=== PATIENT | male | born 1955 | race Caucasian/White ===

== ENCOUNTER → 2016-04-29 | Outpatient (CLI) | payer OTHER ==
[~2016-04-29] MED LIST: ASPI-232 PO; B-CO1CAP17 PO; CHOL1000 PO; COEN100C11 PO; DOXY100C76 PO; FLNIN/ NAE; FLUO20CA35 PO; HYDR-3419 PO; HYDR12.56 PO; LOPE1CAP6 PO; LORA0.5T12 PO; MAGNESIUM PO; MECL1TAB42 PO; MELO7.5T7 PO; METO50TA16 PO; OMEG500C2 PO; OMEP20TA14 PO; OXYC-57 PO; QUIN20TA30 PO; THIA1TAB11 PO; TRAM-10 PO; WARF2TAB PO
[2016-05-06 08:10] LABS: ANAPLASMA PHAGOCYTOPHIL IGG <1:64 (<1:64); ANAPLASMA PHAGOCYTOPHIL IGM <1:20 (<1:20); BRUCELLA AB IGG 0.26; BRUCELLA AB IGM 0.05; R. TYPHI IgG AB Not Detected (Not Detected); R. TYPHI IgM AB Not Detected (Not Detected); RMSF IgM AB Not Detected (Not Detected)
== END | disposition home or self-care (01) ==
LOC: C.LAB1850 15:48
PROVIDERS: ATTEND Internal Medicine Infectious Disease
DX: M79.1 Myalgia (principal)

== ENCOUNTER → 2016-05-31 | Outpatient (CLI) | payer OTHER ==
[2016-06-04 23:19] LABS: R. TYPHI IgG AB Not Detected (Not Detected); R. TYPHI IgM AB Not Detected (Not Detected); RMSF IgM AB Not Detected (Not Detected)
[2016-06-06 00:57] LABS: 18KDIGG BAND REACTIVE (NONREACTIVE); 23KDIGG BAND REACTIVE (NONREACTIVE); 23KDIGM BAND REACTIVE (NONREACTIVE); 28KDIGG BAND NONREACTIVE (NONREACTIVE); 30KDIGG BAND NONREACTIVE (NONREACTIVE); 39KDIGG BAND REACTIVE (NONREACTIVE); 39KDIGM BAND REACTIVE (NONREACTIVE); 41KDIGG BAND REACTIVE (NONREACTIVE); 41KDIGM BAND REACTIVE (NONREACTIVE); 45KDIGG BAND REACTIVE (NONREACTIVE); 58KDIGG BAND REACTIVE (NONREACTIVE); 66KDIGG BAND REACTIVE (NONREACTIVE); 93KDIGG BAND NONREACTIVE (NONREACTIVE)
== END | disposition home or self-care (01) ==
LOC: C.LAB1850 16:00
PROVIDERS: ATTEND Internal Medicine Infectious Disease
DX: G57.32 Lesion of lateral popliteal nerve, left lower limb (principal); A69.20 Lyme disease, unspecified

== ENCOUNTER → 2016-08-01 | Outpatient (CLI) | payer OTHER ==
--- NOTE | 2016-08-01 15:06 | DIAGNOSTIC IMAGING REPORT ---
SCOLIOSIS 2 VIEW (AP LAT) CLINICAL HISTORY: Back pain. COMPARISON STUDY: Lumbar spine MRI 03/27/2016. FINDINGS: Alignment is intact. Vertebral body heights are maintained. There is mild degenerative disc disease within the thoracic and lumbar spine. Mild levoscoliosis of the lumbar spine. This demonstrates a Crowe angle of 10 degrees measured from the superior endplate of L1 through the superior endplate of L4. No significant scoliosis of the cervical or thoracic spine. IMPRESSION: 1. Mild levoscoliosis within the lumbar spine. 2. Mild degenerative disc disease within the thoracic and lumbar spine. Electronically signed by: Blayne Álvarez M.D. 08/01/2016 3:04 PM Dictated Date/Time: 08/01/2016 3:00 PM
--- NOTE | 2016-08-01 15:22 | DIAGNOSTIC IMAGING REPORT ---
LUMBAR SPINE RADIOGRAPHS INCLUDING FLEXION AND EXTENSION CLINICAL HISTORY: Back pain. Left leg drop. COMPARISON: Lumbar spine MRI January 04, 2013. FINDINGS: No acute fracture is identified. There is no evidence for instability on flexion or extension. Moderate to severe multilevel degenerative disc disease and facet arthrosis is noted within the lumbar spine. IMPRESSION: 1. No acute lumbar spine fracture or subluxation identified. 2. No evidence of instability during flexion or extension. 3. Moderate to severe multilevel degenerative disc disease and facet arthrosis within the lumbar spine. Electronically signed by: Red Hui M.D. 08/01/2016 3:19 PM Dictated Date/Time: 08/01/2016 3:17 PM
== END | disposition home or self-care (01) ==
LOC: C.RAD 14:24
PROVIDERS: ATTEND Neurological Surgery
DX: M48.06 Spinal stenosis, lumbar region (principal)

== ENCOUNTER → 2016-11-04 | Outpatient (CLI) | payer OTHER ==
--- NOTE | 2016-11-04 11:41 | DIAGNOSTIC IMAGING REPORT ---
LEFT PELVIS/UNILATERAL HIP 2-3VIEWS CLINICAL HISTORY: 60 years-old Male presenting with LT HIP PAIN. TECHNIQUE: Frontal view of the pelvis and frontal and frog-leg lateral views of the left hip were obtained. COMPARISON: 01/29/2016. FINDINGS: No acute fracture. Significant interval worsening of degenerative change of the left hip joint. There is collapse of the left femoral head with depression of the superior articular surface and subcapital radiolucency of the humeral head which may relate to fragmentation, osteopenia, or reactive degenerative changes. Subchondral sclerosis both in the acetabulum and the humeral head. Significant joint space loss superiorly. Degenerative changes of the right hip joint with osteophytosis. No significant joint space loss. Sacroiliac joints intact. Chondrocalcinosis noted at the pubic symphysis. Degenerative changes of the lumbar spine. Atherosclerosis. IMPRESSION: 1. Significant interval progression of now severe degenerative changes of the left hip joint with collapse of the superior left femoral head, joint space loss, and sclerosis. 2. Less severe degenerative changes of the right hip joint. Electronically signed by: Dez Wyatt 11/04/2016 11:40 AM Dictated Date/Time: 11/04/2016 11:35 AM
== END | disposition home or self-care (01) ==
LOC: C.RADPV 10:13
PROVIDERS: ATTEND Nurse Practitioner
DX: M25.552 Pain in left hip (principal)

== ENCOUNTER → 2016-12-03 | Outpatient (CLI) | payer OTHER ==
--- NOTE | 2016-12-03 13:07 | DIAGNOSTIC IMAGING REPORT ---
RIGHT PELVIS UNILATERAL HIP 1 VIEW CLINICAL HISTORY: RIGHT HIP PAIN Right COMPARISON STUDY: Pelvis 11/04/2016. FINDINGS: Sclerosis with a band of lucency within the left femoral head. There is significant left femoral head collapse. This is consistent with avascular necrosis. There are superimposed severe osteoarthritis within the left hip. There is also sclerosis and a linear subchondral lucency within the right femoral head consistent with a tiny subchondral fracture in the setting of avascular necrosis. This demonstrates minimal femoral head collapse at this time. Bilateral chondrocalcinosis. The visualized pelvic bones are intact. No dislocation. Mild vascular calcifications. IMPRESSION: Bilateral femoral head avascular necrosis, left greater than right, with significant left femoral head collapse/deformity. There is minimal right femoral head collapse at this time. Electronically signed by: Blayne Álvarez M.D. 12/03/2016 1:06 PM Dictated Date/Time: 12/03/2016 1:02 PM
== END | disposition home or self-care (01) ==
LOC: C.RDSM 11:52
PROVIDERS: ATTEND Physician Assistant
DX: M79.641 Pain in right hand (principal)

== ENCOUNTER → 2016-12-17 | Outpatient (CLI) | payer OTHER ==
[~2016-12-17] MED LIST changes: -DOXY100C76 PO; +GADAVIST IV PRN; -TRAM-10 PO
--- NOTE | 2016-12-17 17:16 | DIAGNOSTIC IMAGING REPORT ---
Brain MRI WITH AND WITHOUT CONTRAST HISTORY: R42 [id number] Generalized [id number] TECHNIQUE: Multiplanar multisequence MRI of the brain was performed both before and after the intravenous administration of contrast. COMPARISON STUDY: None. FINDINGS: There are no areas of restricted diffusion to suggest acute infarction. The midline structures are intact. There are 2 small retention cysts within the left maxillary sinus.. The mastoid air cells are clear. The ventricles and sulci are within normal limits for age. There is no mass, hematoma, midline shift. The major vascular flow-voids at the skull base are well maintained. Postcontrast sequences show no areas of abnormal enhancement. There is a single punctate focus of T2 hyperintensity within the subcortical white matter the right posterior frontal lobe. This is of doubtful current significance given the patient's age and favors minimal microvascular ischemic change. IMPRESSION: No significant abnormality within the brain. Electronically signed by: Blayne Álvarez M.D. 12/17/2016 5:15 PM Dictated Date/Time: 12/17/2016 5:09 PM
--- NOTE | 2016-12-17 17:48 | DIAGNOSTIC IMAGING REPORT ---
CERVICAL SPINE MRI WITH AND WITHOUT CONTRAST HISTORY: R42 [id number] Generalized [id number] TECHNIQUE: Multiplanar multisequence MRI of the cervical spine was performed both before and after the use of intravenous contrast. COMPARISON STUDY: Cervical spine 12/13/2016. FINDINGS: Straightening of the cervical spine. Alignment is intact. The visualized posterior fossa is unremarkable. Prevertebral soft tissues and the C1-C2 interval are maintained. Mild endplate edema at the C7-T1 level is likely due to the long-standing degenerative change. Hypoplastic C2-C3 disc space. Mild disc space narrowing at C5-C6 and C6-C7. Moderate disc space narrowing at C7-T1. There are endplate osteophytes at these levels. No abnormal enhancement within the cervical spinal cord. C2-C3: No significant central canal or neural foraminal narrowing. C3-C4: No significant central canal or neural foraminal narrowing. C4-C5: No significant central canal or neural foraminal narrowing. C5-C6: Small broad-based posterior disc bulge resulting in near-complete effacement of the anterior thecal sac without cord deformity. Mild bilateral neural foraminal narrowing due to the uncovertebral hypertrophy. C6-C7: Small broad-based posterior disc bulge resulting in near-complete effacement of the anterior thecal sac without cord deformity. There is moderate bilateral neural foraminal narrowing. C7-T1: Broad-based posterior disc bulge with a focal central disc protrusion. This disc protrusion measures 5 mm. This results in moderate cord deformity. There is a small focus of increased T2 signal at the cord at this level. This favors myelomalacia due to the disc herniation. Severe left and moderate right neural foraminal narrowing. IMPRESSION: 1. No abnormal enhancement within the cervical spine. 2. Multilevel cervical spondylosis as described above most pronounced within the lower cervical spine. This includes a focal central disc protrusion at C7-T1 which results in moderate cord deformity/thinning. There is also a small focus of increased T2 signal within the cord at this level which is consistent with myelomalacia. This is likely due to the disc herniation. Electronically signed by: Blayne Álvarez M.D. 12/17/2016 5:47 PM Dictated Date/Time: 12/17/2016 5:38 PM
== END | disposition home or self-care (01) ==
LOC: C.MRI 14:48
PROVIDERS: ATTEND Physician Assistant
DX: R53.1 Weakness (principal); R20.2 Paresthesia of skin; R42 Dizziness and giddiness

== ENCOUNTER 2017-01-08 06:12 | Inpatient (IN) | payer OTHER ==
[2016-12-13 14:23] VITALS: BMI 28.0
[2016-12-13 14:38] VITALS: BMI 28.0
--- NOTE | 2016-12-13 14:58 | PAT Medication Instructions ---
Service Date Dec 13, 2016. Current Home Medication List Aspirin (Aspir-81), 81 MG PO QAM Cholecalciferol (Vitamin D3), 5,000 UNITS PO QAM Coenzyme Q10 (Ubidecarenone) (Coq-10), 100 MG PO QAM Fluoxetine (Prozac), 20 MG PO QAM Fluticasone Propionate (Fluticasone Propionate), 2 SPRAYS BRODIE DAILY PRN for Nasal Congestion Hydrochlorothiazide (Hctz), 12.5 MG PO QAM Hydrocodon/Acetaminophen 5MG/300MG (Vicodin (5MG/300MG)), 1 TAB PO Q4-6H PRN for Pain Loperamide Hcl (Anti-Diarrheal), 2 MG PO PRN Lorazepam (Lorazepam), 0.5 MG PO TID PRN Meclizine Hcl (Meclizine Hcl), 1 TAB PO TID PRN for RN Meloxicam (Mobic), 7.5 MG PO BID Metoprolol Tartrate (Lopressor) (Lopressor), 25 MG PO BID [place]-3 Fatty Acids (Fish Oil), 1,000 MG PO HS Omeprazole Magnesium (Prilosec Otc), 20 MG PO BID Quinapril Hcl (Quinapril Hcl), 40 MG PO QAM Thiamine Mononitrate (Vitamin B1), 100 MG PO QPM Vitamin B Cmplx/Vitc/Folic Ac (Nephrocaps), 1 CAP PO QAM [Magnesium], 500 MG PO QAM Medication Instructions For Your Scheduled Surgery - Check with surgeon for instructions: Meloxicam (Mobic), 7.5 MG PO BID - Hold the following medications 2 weeks prior to surgery: [place]-3 Fatty Acids (Fish Oil), 1,000 MG PO HS Coenzyme Q10 (Ubidecarenone) (Coq-10), 100 MG PO QAM - Hold the following medications the morning of surgery: Cholecalciferol (Vitamin D3), 5,000 UNITS PO QAM Hydrochlorothiazide (Hctz), 12.5 MG PO QAM Loperamide Hcl (Anti-Diarrheal), 2 MG PO PRN Quinapril Hcl (Quinapril Hcl), 40 MG PO QAM Vitamin B Cmplx/Vitc/Folic Ac (Nephrocaps), 1 CAP PO QAM [Magnesium], 500 MG PO QAM - Take the following medications the morning of surgery with a sip of water: Metoprolol Tartrate (Lopressor) (Lopressor), 25 MG PO BID Fluoxetine (Prozac), 20 MG PO QAM Hydrocodon/Acetaminophen 5MG/300MG (Vicodin (5MG/300MG)), 1 TAB PO Q4-6H PRN for Pain (can take up to 4 hours prior to surgery as needed) Omeprazole Magnesium (Prilosec Otc), 20 MG PO BID Lorazepam (Lorazepam), 0.5 MG PO TID PRN Meclizine Hcl (Meclizine Hcl), 1 TAB PO TID PRN for RN i(if needed) Fluticasone Propionate (Fluticasone Propionate), 2 SPRAYS BRODIE DAILY PRN for Nasal Congestion i(if needed) Aspirin (Aspir-81), 81 MG PO QAM - Take the following medications as scheduled the night before surgery: Thiamine Mononitrate (Vitamin B1), 100 MG PO QPM Omeprazole Magnesium (Prilosec Otc), 20 MG PO BID Lorazepam (Lorazepam), 0.5 MG PO TID PRN Meclizine Hcl (Meclizine Hcl), 1 TAB PO TID PRN for RN (if needed) Fluticasone Propionate (Fluticasone Propionate), 2 SPRAYS BRODIE DAILY PRN for Nasal Congestion i(if needed) Loperamide Hcl (Anti-Diarrheal), 2 MG PO PRNi(if needed) If you have any questions please call us at [phone] or [phone] or [phone]
[2016-12-13 15:29] LABS: BASO % 0.3 %; BASO ABS # 0.03 K/uL (0-0.2); COMPLETE YES; EOS % 2.9 %; HEMATOCRIT 46.7 % (42-52); IG% 0.1 %; LYMPH % 29.1 %; MEAN CELL VOLUME 84.8 fL (80-100); MEAN CORPUSCULAR HEMOGLOBIN 26.7 pg (25-34); MEAN CORPUSCULAR HGB CONC 31.5 g/dl (32-36); MEAN PLATELET VOLUME 10.2 fL (7.4-10.4); MONO % 12.4 %; NEUT % 55.2 %; PLATELET COUNT 252 K/uL (130-400); RED BLOOD COUNT 5.51 M/uL (4.7-6.1)
[2016-12-13 15:31] LABS: URINE APPEARANCE CLEAR (CLEAR); URINE BILIRUBIN NEG (NEG); URINE COLOR YELLOW; URINE NITRITE NEG (NEG); URINE PH 5.5 (4.5-7.5); URINE SPECIFIC GRAVITY 1.024 (1.000-1.030); UROBILINOGEN NEG (NEG)
[2016-12-13 15:36] LABS: MANUAL MICROSCOPIC REQUIRED? NO; REVIEW REQ? NO
[2016-12-13 15:37] LABS: INR 0.9 (0.9-1.1); PARTIAL THROMBOPLASTIN RATIO 1.1
--- NOTE | 2016-12-13 15:37 | DIAGNOSTIC IMAGING REPORT ---
CHEST 2 VIEWS ROUTINE HISTORY: Preop. COMPARISON: Chest 07/13/2012. FINDINGS: Tortuous thoracic aorta, unchanged. The heart is normal in size. The lungs are clear. No pleural effusions. No pneumothorax. IMPRESSION: No significant change compared to the prior study. No acute process. Electronically signed by: Blayne Álvarez M.D. 12/13/2016 3:36 PM Dictated Date/Time: 12/13/2016 3:35 PM
--- NOTE | 2016-12-13 15:39 | DIAGNOSTIC IMAGING REPORT ---
CERVICAL SPINE 2 OR 3 VIEWS CLINICAL HISTORY: 61 years-old Male presenting with PREOP, RHEUMATOID ARTHRITIS. TECHNIQUE: Lateral views of the cervical spine in neutral, flexion, and extension positioning were obtained. COMPARISON: None. FINDINGS: In neutral position, vertebral bodies maintain normal height and alignment. Mild intervertebral disc height loss at C2-3 and C6-7. Multilevel degenerative change including calcification within the intervertebral disc at C2-3. Normal predental interval. No radiographic subluxation. No prevertebral soft tissue swelling. No significant abnormality of the atlantoaxial articulation. On flexion and extension views, no dynamic subluxation is evident. IMPRESSION: No evidence of dynamic subluxation on flexion and extension. Multilevel degenerative changes. Electronically signed by: Dez Wyatt M.D. 12/13/2016 3:38 PM Dictated Date/Time: 12/13/2016 3:36 PM
[2016-12-13 15:44] LABS: BUN/CREATININE RATIO 25.9 (10-20); CALCIUM 8.9 mg/dl (8.5-10.1); CREATININE 0.85 mg/dl (0.60-1.40); POTASSIUM 4.2 mmol/L (3.5-5.1)
--- NOTE | 2016-12-17 15:45 | HISTORY & PHYSICAL EXAMINATION ---
DATE OF ADMISSION: 01/01/2017 CHIEF COMPLAINT: Bilateral hip pain, left greater than right. HISTORY OF PRESENT ILLNESS: This 61-year-old white male presents to the office with complaints of bilateral hip pain, left greater than right, for about a year. Symptoms became worse in April. He had difficulty with ambulation. Hip pain is worse with bending or trying to go upstairs. Pain is anterior. It is affecting his ADLs. He has difficulty walking. He has a history of L2 through L5 surgery in 2012. He has had left leg difficulty since that time with foot drop and muscle wasting as well as peripheral numbness. He is currently ambulating with a walker. The pain occasionally radiates to the thighs. He does have chronic low back pain. Treatment is consisted of oral pain medication, anti-inflammatories, and intra-articular cortisone injections without lasting relief. X-rays have been obtained. PAST MEDICAL HISTORY: Significant for hypertension, elevated cholesterol, anxiety, peripheral neuropathy, history of mini stroke, GERD, osteoarthritis, and chronic low back pain. PREVIOUS SURGERIES: Back surgery in 1992 and 2012. Carpal tunnel release in 2003 and toe surgery in 2013. Colonoscopy in 2014. ALLERGIES: KNOWN ALLERGY TO GABAPENTIN AND CODEINE. FAMILY HISTORY: Noncontributory. SOCIAL HISTORY: The patient is currently disabled. No ETOH use. Smokes 10 pipes per day. . CURRENT MEDICATIONS: Vicodin 5/300 p.r.n., Asacol HD 800 mg 2 tablets p.o. t.i.d., aspirin 81 mg daily, coenzyme Q10 daily, fish oil 500 mg daily, fluoxetine unknown dose daily, fluticasone nasal spray 50 mcg daily, HCTZ 25 mg p.o. daily, lorazepam 0.5 mg p.o. p.r.n., magnesium oxide 500 mg p.o. daily, meclizine p.r.n., meloxicam 7.5 mg p.o. daily, metoprolol 50 mg p.o. daily, omeprazole 20 mg p.o. daily, quinapril 40 mg p.o. daily, and vitamin D daily. ALLERGIES: NKDA. REVIEW OF SYSTEMS: Significant for above stated conditions, otherwise unremarkable. PHYSICAL EXAMINATION: GENERAL: Well-developed and well-nourished middle aged white male, in no acute distress. He looks older than his stated age. Alert and oriented. Sitting in a chair. SKIN: Warm and dry with good turgor. No rashes or lesions. No ecchymosis or erythema. HEENT: Normocephalic and atraumatic. Eyes, PERRLA, EOMI. Nares patent bilaterally without turbinate enlargement. Oropharynx is without erythema or exudate. No lesions noted. Uvula midline. Oral mucosa moist. Fair dentition. Numerous fillings and broken teeth are noted. HEART: RRR. No MGR. LUNGS: Clear to auscultation bilaterally. No crackles, rhonchi or wheezing. Fair air movement. He is able to take a deep breath. ABDOMEN: Bowel sounds present x4, soft and nontender. No organomegaly. No masses. MUSCULOSKELETAL: Left hip evaluation reveals no obvious asymmetry or deformity. He has very limited motion. Active flexion is only to his current 90 degrees. Passively, I am able to get him to around 100 degrees. Strength is 3/5 for flexion of the hip. Strength is also 3/5 for dorsiflexion and plantarflexion of the ankle. Strength is 4/5 for knee flexion and extension. Internal and external rotation of the hip is less than 10 degrees secondary to pain. He has visible atrophy of the lower leg muscles on the left side. He is currently wearing an AFO. Ambulatory with an antalgic gait using his walker. NEUROLOGIC: Cranial nerves II through XII are intact. Gross sensation is intact across his thigh. He has absence of sensation across the L4 and L5 distribution of left leg. Peripheral pulses are 2+. Absent posterior tibial nerve function as well as peroneal nerve function. DATA: Radiographic images previously obtained show severe osteoarthritis with femoral head collapse on the left side. He does have significant osteoarthritis and periarticular osteophytes on the right hip as well. IMPRESSION: Left hip degenerative joint disease with avascular necrosis. PLAN: Informed written consent was obtained to proceed with left total hip arthroplasty. Postoperative prescriptions for Percocet and Coumadin will be provided at discharge from the hospital. Preoperative lab work, EKG, and chest x-ray have been ordered. He has already obtained medical clearance from Dr. Ruiz. He will be seen in his PCP next week. The patient is anticipated to be going home with 2 weeks of home health services and then outpatient PT. He understands that his recovery may be a little more difficult secondary to the foot drop.
[~2017-01-08] VITALS: Ht 182.9 cm; Wt 93.6 kg
[2017-01-08] VITALS (9 sets, daily range): BP systolic 100–137; BP diastolic 63–92; PULSE 65–90; TEMP 36.4–36.9; O2SAT 94–98; Ht 182.9 cm; Wt 93.6 kg
[~2017-01-08 06:12] MED LIST changes: +CEFAZOLIN 2000 MG/60 ML D5W 60 ML IV SCH; -GADAVIST IV PRN; +LACTATED RINGER'S 1000ML 1,000 ML IV SCH; +LACTATED RINGER'S 1000ML 500 ML IV ONE; -OXYC-57 PO; +TRANEXAMIC ACID INJ 1,000 MG in SODIUM CHLORIDE 0.9% 100ML 100 ML TOP SCH; -WARF2TAB PO
--- NOTE | 2017-01-08 06:27 | History & Physical Bridge Note ---
H&P Re-Evaluation Bridge Note: I have examined the patient, reviewed the History & Physical and in the interval since the performance of the History & Physical I have noted the following changes of clinical significance: consent obtained.No changes noted
[2017-01-08] MEDS ORDERED: TRANEXAMIC ACID INJ 1,000 MG in SODIUM CHLORIDE 0.9% 100ML 100 ML IV SCH (06:30)
[2017-01-08] MEDS ORDERED: BUPIVACAINE 0.5 % 5 MG/1 ML PF 10ML VIAL ONE (06:32)
[2017-01-08] MEDS ORDERED: PROPOFOL IV EMULSION 10 MG/ML 20 ML VIAL IV ONE (07:39)
[2017-01-08] MEDS ORDERED: LIDOCAINE HCL 2% 2 ML VIAL (20MG/ML) ONE (07:39)
[2017-01-08] MEDS ORDERED: MIDAZOLAM HCL 1 MG/ML 2ML VIAL ONE (07:39)
[2017-01-08] MEDS ORDERED: FENTANYL CITRATE INJ 50 MCG/1 ML 2 ML VIAL ONE (07:39)
[2017-01-08] MEDS ORDERED: ORTHO JOINT ANESTHETIC ONE (08:34)
[2017-01-08] MEDS ORDERED: POVIDONE-IODINE OP SOLN 30 ML BTL ONE (08:34)
[2017-01-08] MEDS ORDERED: KETOROLAC TROMETHAMINE 30 MG/ML VIAL IV. PRN (08:45)
[2017-01-08] MEDS ORDERED: EpHEDrine SULFATE INJ 50 MG/ML AMP IV PRN (08:45)
[2017-01-08] MEDS ORDERED: ONDANSETRON INJ 2 MG/ML 2 ML VIAL IV PRN ×2 (08:45→10:30)
[2017-01-08] MEDS ORDERED: HYDROmorphone INJ 2 MG/ML SYR/VIAL IV PRN (08:45)
[2017-01-08] MEDS ORDERED: PHENYLEPHRINE 100MCG/ML 5ML SYR IV PRN (08:45)
[2017-01-08] MEDS ORDERED: ATROPINE SULFATE 0.1 MG/ML 5ML SYR IV PRN (08:45)
[2017-01-08] MEDS: ROPIVACAINE 5MG/ML 30 ML 150 MG, BUPIVACAINE/EPINEPHR 0.5% MPF 30 ML, KETOROLAC TROMETH... INFIL SCH ×14 (09:53→10:02)
--- NOTE | 2017-01-08 10:15 | [facility] Post Operative Brief Note ---
Immediate Operative Summary Operative Date Jan 08, 2017. Pre-Operative Diagnosis Left hip end-stage degenerative joint disease/AVN Post-Operative Diagnosis Left hip end-stage degenerative joint disease/AVN Procedure(s) Performed Left total hip arthroplasty Surgeon Dr. Brooks Plastic Straightening Roll Operator Surgeon(s) Marco A Wylie PA-C Estimated Blood Loss 200 mL Findings severe djd/avn Fluids (cc crystalloids) 1400cc Specimens A: Left femoral head Drains none Anesthesia spinal Complication(s) None Disposition Recovery Room / PACU
[2017-01-08] MEDS ORDERED: LOPERAMIDE HCL 2 MG CAP PO PRN (10:30)
[2017-01-08] MEDS ORDERED: MAGNESIUM HYDROXIDE SUSP 30 ML UDC PO PRN (10:30)
[2017-01-08] MEDS ORDERED: MoRPHine SULFATE 2 MG/ML CARP IV PRN (10:30)
[2017-01-08] MEDS ORDERED: BISACODYL 10 MG SUPP PR PRN (10:30)
[2017-01-08] MEDS ORDERED: LORAZEPAM 0.5 MG TAB PO PRN (10:30)
[2017-01-08] MEDS ORDERED: TAMSULOSIN HCL 0.4 MG CAP PO PRN (10:30)
[2017-01-08] MEDS ORDERED: FLUTICASONE PROPIONATE NA SPR 16 GM BTL NAE PRN (10:30)
[2017-01-08] MEDS ORDERED: ALUMINUM/MAGNESIUM/SIMETH (MAALOX MAX) 30 ML UDC PO PRN (10:30)
[2017-01-08] MEDS ORDERED: OXYCODONE HCL IR 5 MG TAB (IMMEDIATE RELEASE) PO PRN (10:30)
[2017-01-08] MEDS ORDERED: MECLIZINE HCL 12.5 MG TAB PO PRN (10:30)
[2017-01-08] MEDS ORDERED: METOCLOPRAMIDE HCL INJ 5 MG/ML 2 ML VIAL IV PRN (10:30)
[2017-01-08] MEDS ORDERED: DiphenhydrAMINE HCL 50 MG/ML VIAL IV PRN (10:30)
[2017-01-08] MEDS ORDERED: ACETAMINOPHEN 325 MG TAB PO PRN (10:30)
[2017-01-08] MEDS ORDERED: MoRPHine SULFATE 4 MG/ML 1 ML CARP\\VIAL IV PRN (10:45)
--- NOTE | 2017-01-08 10:58 | DIAGNOSTIC IMAGING REPORT ---
AP PELVIS History: Left total hip arthroplasty. Degenerative arthritis. Postop. FINDINGS: The patient is status post a left total hip arthroplasty. The hardware is intact. No fracture or dislocation. Skin nirmal are in place. IMPRESSION: Left total hip arthroplasty. No evidence for hardware complication. Electronically signed by: Blayne Álvarez M.D. 01/08/2017 10:56 AM Dictated Date/Time: 01/08/2017 10:56 AM
--- NOTE | 2017-01-08 11:46 | OPERATIVE REPORT ---
DATE OF OPERATION: 01/08/2017 PREOPERATIVE DIAGNOSIS: Severe osteoarthritis with necrosis, left hip. POSTOPERATIVE DIAGNOSIS: Same. OPERATION PERFORMED: Noncemented left total hip replacement. SURGEON: Dr. Brooks. DIVISIONAL STOREKEEPER: Erica ortho fellow, Marco A Wylie PA-C. SUMMARY OF IMPLANTS: 52 cup acetabular shell sector, cancellous screw 6.5 x 30, polyethylene liner 36 x 52 neutral, femoral stem 7 high offset Tri-Lock and femoral head is 36 +15.5. PERIOPERATIVE SITUATION: Medically cleared male with intractable hip pain with end-stage disease, marked joint space collapse secondary to AVN, DJD with leg length shortening of a couple inches. At this point in time wants to proceed with surgical treatment. OPERATION AND FINDINGS: OPERATION: The patient appropriately identified, site verified, consent verified, 2 grams of Ancef confirmed as being given. The left lower extremity was prepped and draped in usual routine fashion with the patient in the right lateral decubitus position. A posterolateral approach to the hip was made. Sharp dissection carried through skin and blunt dissection down to the fascia. This was then incised under direct vision and the gluteus weston fascia split and the IT band incised. Care was taken to protect the sciatic nerve. It should be mentioned that he had a significant foot drop with very minimal sciatic function below the knee that was secondary to previous back issues. Despite that the nerve was protected. Short external rotators were released. The capsule was T'd. It was ultimately excised due to its severe contracture. The hip was then dislocated and the femoral neck resected. The head was markedly deformed. The acetabular labrum was completely detached superiorly and anteriorly. It was all excised. Marginal osteophytes were removed. Serial reaming carried up to a 52 and a 52 cup impacted into excellent anteversion and inclination and had a good rim pressfit. A secondary screw fixation with 6.5 x 25 screw was placed with good purchase. Area was then irrigated with Betadine, Pulsavac and then the trial liner seated. The femur was then delivered into the wound with flexion and internal rotation. Appropriate retractors were placed and the proximal femur prepared with the ordering box operator, the canal finder, the lateralizing rasp, and serial broaching up to a size 7. Trials with standard and high offset produced better leg length inequality and stability with high offset. A +15.5 head was excellent. The hip was then dislocated. The remaining trial elements were removed. The wound irrigated with Pulsavac, Betadine, hole eliminator seated, permanent liner seated, permanent stem and head seated. The hip was then reduced. It was markedly stable. It was irrigated with Betadine. It was irrigated with Pulsavac. It was irrigated with TXA and then it was closed with #2 Vicryl, 2-0 Vicryl and stainless steel clips. Appropriate dressing applied and the patient transferred to recovery room in satisfactory condition having tolerated the procedure well. EBL was 150 mL. Crystalloid 1400 mL. DVT prophylaxis per protocol. I attest to the content of the Intraoperative Record and any orders documented therein. Any exception s are noted below.
--- NOTE | 2017-01-08 12:15 | Anesthesiology Progress Note ---
Anesthesia Post Op Note Date & Time Jan 08, 2017 at 12:15 Vital Signs Pain Intensity: 0.0 Vital Signs Past 12 Hours Date Time Temp Pulse Resp B/P (MAP) Pulse Ox O2 Delivery O2 Flow Rate FiO2 01/08/17 11:45 95 Nasal Cannula 2.0 01/08/17 11:45 Nasal Cannula 2.0 01/08/17 11:26 97/62 01/08/17 11:25 65 18 96 01/08/17 11:25 64 18 01/08/17 11:21 100/60 01/08/17 11:20 65 14 01/08/17 11:20 65 14 96 01/08/17 11:15 64 16 01/08/17 11:15 63 16 95/57 95 01/08/17 11:14 66 16 01/08/17 11:14 67 16 96 01/08/17 11:12 36.9 01/08/17 11:09 68 18 99 01/08/17 11:09 68 18 01/08/17 11:06 98/60 01/08/17 11:04 68 18 95 01/08/17 11:04 67 18 01/08/17 11:03 66 12 01/08/17 11:03 66 12 96 01/08/17 11:01 96/59 01/08/17 10:58 70 20 01/08/17 10:58 70 20 95 01/08/17 10:56 96/65 01/08/17 10:53 65 20 96 01/08/17 10:53 64 20 01/08/17 10:52 68 22 96 01/08/17 10:52 68 22 01/08/17 10:51 95/64 01/08/17 10:47 66 12 96 01/08/17 10:47 66 12 01/08/17 10:46 94/59 01/08/17 10:42 66 12 01/08/17 10:42 65 12 96 01/08/17 10:41 70 17 93/60 95 01/08/17 10:41 72 17 01/08/17 10:36 70 17 93/63 94 01/08/17 10:36 70 17 01/08/17 10:31 69 17 89/60 94 01/08/17 10:31 69 17 01/08/17 10:27 96/58 01/08/17 10:26 36.7 69 16 96/58 94 Nasal Cannula 2 01/08/17 10:26 71 15 94 01/08/17 10:26 70 15 01/08/17 06:46 36.9 79 20 134/92 95 Room Air Notes Mental Status: alert / awake / arousable, participated in evaluation Pt Amnestic to Procedure: Yes Nausea / Vomiting: adequately controlled Pain: adequately controlled Airway Patency, RR, SpO2: stable & adequate BP & HR: stable & adequate Hydration State: stable & adequate Anesthetic Complications: no major complications apparent
--- NOTE | 2017-01-08 12:43 | [facility] Operative Report ---
Operative Report Operative Date Jan 08, 2017. Pre-Operative Diagnosis Left hip end-stage degenerative joint disease/AVN Post-Operative Diagnosis Left hip end-stage degenerative joint disease/AVN Procedure(s) Performed Left total hip arthroplasty Surgeon Dr. Brooks Turret Press Operator Surgeon(s) Marco A Wylie PA-C Estimated Blood Loss 200 mL Findings Left hip DJD Fluids 1400cc Specimens A: Left femoral head Drains none Anesthesia spinal Complication(s) None Disposition Recovery Room / PACU Indications This 61-year-old white male presented to the office with complaints of intractable left hip pain. He had tried conservative care measures including activity modification, oral anti-inflammatories, oral pain medication, and physical therapy. He was ambulatory using a walker. Pain was affecting his ADLs. He elected to proceed with surgical intervention in hopes of alleviating his discomfort. Preoperative imaging was obtained. Description of Procedure Patient was administered a spinal anesthetic and then taken to the operating room where he was given sedation. he was prepped and draped in usual sterile fashion. Please see Dr. Brooks's operative report for specifics of the procedure. I was present for the entire case from initial patient positioning through final wound closure. Assistance was provided in tissue traction, hemostasis, trial implant placement, final implant placement, and final wound closure. Patient was taken to the recovery room in satisfactory condition. I attest to the content of the Intraoperative Record and any orders documented therein. Any exceptions are noted below.
[2017-01-08] MEDS ORDERED: D5W AND 1/2NSS + 20MEQ KCL 1,000 ML IV SCH (13:00)
--- NOTE | 2017-01-08 13:03 | Progress Note ---
Progress Note Date of Service Jan 08, 2017. Progress Note Postop check doing well sitting up in bed eating lunch. Denies chest pain shortness of breath fever chills nausea vomiting or headache. Spinal still in place. Of note is that he still has a a significant neurologic deficit in his left lower extremity from previous neurologic problems including a complete foot drop. Vital signs are stable afebrile. Dressing clean dry and intact. Calves nontender. Postop x-rays look excellent. Assessment doing well continue with present care pathway. Out of bed. If he tolerates lunch Hep-Lock IV. Coumadin per nomogram. Dictated not read.
[2017-01-08] MEDS: FERROUS GLUCONATE 324 MG TAB PO SCH ×2 (13:23→18:25)
[2017-01-08] MEDS: ACETAMINOPHEN IV 1,000 MG in EMPTY BAG 0 ML IV SCH ×2 (13:52→21:24)
[2017-01-08] MEDS ORDERED: WARF2TAB PO (14:17)
[2017-01-08] MEDS ORDERED: OXYC-57 PO (14:17)
[2017-01-08] MEDS ORDERED: WARFARIN SOD 5 MG TAB PO SCH (16:00)
[2017-01-08] MEDS: KETOROLAC TROMETHAMINE 30 MG/ML VIAL IV. SCH ×2 (16:20→21:24)
[2017-01-08] MEDS: CEFAZOLIN IV 2,000 MG in DEXTROSE 5% 50ML 50 ML IV SCH ×2 (16:20→23:58)
[2017-01-08] MEDS ORDERED: THIAMINE HCL 100 MG TAB PO SCH (21:00)
[2017-01-08] MEDS: DOCUSATE SODIUM 100 MG CAP PO SCH (21:18)
[2017-01-08] MEDS: METOPROLOL TARTRATE 25 MG TAB PO SCH (21:18)
[2017-01-09 02:48] VITALS: BP 134/79; PULSE 81; TEMP 37.3; O2SAT 98
[2017-01-09] MEDS: KETOROLAC TROMETHAMINE 30 MG/ML VIAL IV. SCH ×2 (03:41→10:45)
[2017-01-09] MEDS: ACETAMINOPHEN IV 1,000 MG in EMPTY BAG 0 ML IV SCH (05:42)
[2017-01-09 06:41] LABS: BASO % 0.1 %; BASO ABS # 0.01 K/uL (0-0.2); COMPLETE YES; EOS % 0.2 %; HEMATOCRIT 39.2 % (42-52); IG% 0.3 %; LYMPH % 12.5 %; MEAN CELL VOLUME 84.8 fL (80-100); MEAN CORPUSCULAR HEMOGLOBIN 28.1 pg (25-34); MEAN CORPUSCULAR HGB CONC 33.2 g/dl (32-36); MEAN PLATELET VOLUME 10.1 fL (7.4-10.4); MONO % 11.9 %; PLATELET COUNT 263 K/uL (130-400); RED BLOOD COUNT 4.62 M/uL (4.7-6.1); WHITE BLOOD COUNT 15.24 K/uL (4.8-10.8)
[2017-01-09 06:58] LABS: PROTHROMBIN TIME (PATIENT) 10.6 SECONDS (9.0-12.0)
[2017-01-09 07:00] VITALS: BP 119/79; PULSE 73; TEMP 36.6; O2SAT 97
[2017-01-09 07:06] LABS: BUN/CREATININE RATIO 19.3 (10-20); CALCIUM 8.6 mg/dl (8.5-10.1); CREATININE 0.99 mg/dl (0.60-1.40); POTASSIUM 4.2 mmol/L (3.5-5.1)
[2017-01-09] MEDS ORDERED: DEXAMETHASONE INJ 10 MG in SYRINGE 0 ML IV SCH (07:30)
--- NOTE | 2017-01-09 07:37 | PROGRESS NOTE ---
DATE: 01/09/2017 SUBJECTIVE: Postop day #1 status post left total hip replacement: The patient denies chest pain, shortness of breath, fever, chills, nausea, vomiting or headache. Vital signs are stable, afebrile. Neurovascular check is at baseline and has poor neurologic function left leg femoral/sciatic nerves based on neurologic issue that is chronic. It is not related to this surgery. Wound dressing clean, dry and intact. Hip is located, supple motion. He is pain free. He notes he has been not able to stand or walk this well over the last 9-10 months. LABORATORY WORK: Pending. ASSESSMENT: Doing well status post left hip replacement. We will discharge today after physical therapy, occupational therapy and social service assessments. His can get here till after 2:30, so discharge will be after that point in time. Discharge on 4 mg of Coumadin. If INR is less than 1.5. Check INR on Friday. MTDD
--- NOTE | 2017-01-09 07:42 | DISCHARGE SUMMARY ---
CHIEF COMPLAINT: Bilateral hip pain, left greater than right. HISTORY OF PRESENT ILLNESS: The patient underwent elective left total hip replacement. He had no perioperative or postoperative complication. He is pain free at this point in time. He has difficulty walking secondary to low back issue with L2-L5 issues in 2012. He has a chronic foot drop and weakness of that leg. He currently ambulates with a walker. PAST MEDICAL HISTORY: Remarkable for hypertension, elevated cholesterol, anxiety, peripheral neuropathy, history of mini stroke, GERD, osteoarthritis, and chronic low back pain. PAST SURGICAL HISTORY: Include multiple back surgeries, carpal tunnel release, toe surgery, and colonoscopy. ALLERGIES: GABAPENTIN AND CODEINE. FAMILY HISTORY: Noncontributory. SOCIAL HISTORY: The patient is currently disabled. No alcohol but does smoke. He is . PREADMISSION MEDICATIONS: Include Vicodin, Asacol, aspirin, coenzyme Q10, fish oil, fluoxetine, fluticasone nasal spray, hydrochlorothiazide, lorazepam, magnesium. He will continue all those medications with the exception of the aspirin. He will be placed on Coumadin 4 mg if INR is less than 1.5. He also takes p.r.n. meclizine, Meloxicam. He will discontinue the Meloxicam and metoprolol he takes daily continue that, omeprazole he takes daily continue that, quinapril he takes daily continue that. Also, take vitamin D. ALLERGIES: None. REVIEW OF SYSTEMS: Noncontributory. ASSESSMENT: Doing well status post left total hip replacement. Wound dressing clean, dry and intact. Neurovascular check is at baseline level. He is able to ambulate. He notes that he is pain free. He is very happy. He will be discharged today after PT, OT and social service assessment of his right leg and it will get up to 2:30, so he will be able to discharged after that.
[2017-01-09] MEDS: FERROUS GLUCONATE 324 MG TAB PO SCH ×2 (08:56→13:21)
[2017-01-09] MEDS: DOCUSATE SODIUM 100 MG CAP PO SCH (08:56)
[2017-01-09 08:59] VITALS: BP 129/80; PULSE 87
[2017-01-09] MEDS ORDERED: ASPIRIN 81 MG ECTAB PO SCH (09:00)
[2017-01-09] MEDS ORDERED: FLUOXETINE HCL 20 MG CAP PO SCH (09:00)
[2017-01-09] MEDS ORDERED: ENALAPRIL MALEATE 10 MG TAB PO SCH (09:00)
[2017-01-09] MEDS ORDERED: PANTOprazole SOD 40 MG TAB PO SCH (09:00)
[2017-01-09] MEDS ORDERED: HYDROCHLOROTHIAZIDE 25 MG TAB PO SCH (09:00)
[2017-01-09] MEDS ORDERED: MAGNESIUM OXIDE 400 MG TAB PO SCH (09:00)
[2017-01-09] MEDS: METOPROLOL TARTRATE 25 MG TAB PO SCH (09:00)
[2017-01-09] MEDS ORDERED: MULTIVITAMIN TAB PO SCH (09:00)
--- NOTE | 2017-01-09 09:03 | Discharge Instructions ---
Discharge Instructions Date of Service Jan 08, 2017. Admission Reason for Admission: Left Hip Avascular Necrosis & Degenerative Joint D Discharge Discharge Diagnosis / Problem: left hip s/p total hip replacement Discharge Goals Goal(s): Decrease discomfort, Improve function, Increase independence Activity Recommendations Activity Limitations: as noted below Lifting Limitations: gradually increase as tolerated Exercise/Sports Limitations: until after follow-up appointment Shower/Bathe: keep incision dry Driving or Machine Use: No driving until cleared by Dr. Brooks Weightbearing Status: Left weightbearing (as tolerated) . Instructions / Follow-Up Instructions / Follow-Up New Medicine: * You will likely be taking one or more of these medicines: 1. Percocet - Take, as directed, when you need it, every four to six hours to control your pain. 2. Coumadin - Thins your blood to lessen the chance of forming a blood clot. The dose of this is different for each person and is based on your blood tests that are done twice a week. * The most common side effects of pain medicine and iron are nausea and constipation. If nausea or constipation is too much of a problem or if you have any questions about your new medicines or doses, call [facility] at . We will try to help you manage these issues. VERY IMPORTANT TO READ AND REVIEW" Blood Clots and Blood Thinning Medicine: * You are given Coumadin during the immediate post-operative period to lessen the risk of blood clots forming in your legs and/or lungs. Coumadin is usually given for six weeks after surgery. * The prescription is for 2 mg tablets. At discharge, you should understand your dose and take it all at the same time every day, preferably after dinner. * You need to get your blood checked 1 - 2 times per week for six weeks, or as directed. * If your dose needs to change, we will call you. Do not take your medication on the day of the blood test until we call you. * If you don't hear from us after your blood draws, keep taking the same dose. Pain: * The immediate post-operative period after hip replacement surgery is often quite painful. * You are given a prescription for pain medicine. You should take it, as directed, when you need it, especially before physical therapy and before going to bed. Pain that interferes with sleep is very common and can last several months. * You will likely need pain medicine for the first two to four weeks. It will not stop all of the pain. The pain will lessen and as you feel better, you may change to milder pain medicine such as Tylenol. * The most common side effects of pain medicine are nausea and constipation, so don't take more than you need. Physical Therapy: * Follow the "Hip Precautions Instructions." * In some cases, the drug abuse social worker at the hospital will arrange to have a therapist come to your house for the first couple of weeks to help you learn these skills. * You need to practice on your own or with the help of a family member as needed. * When you learn these skills, most of the therapy can be done on your own. Home Exercise: * You were shown a series of exercises in the hospital. Do these exercises three to four times each day including the exercises you were shown in physical therapy. Walking: * Get up and walk several times each day. For the first four weeks, try not to stand or walk for more than one hour at a time. If you do stand or walk for more than one hour, you will not hurt anything, but your leg will likely swell. * As you feel comfortable, you may change from the walker or crutches to a cane and then to independent walking. SELF CARE INSTRUCTIONS AFTER TOTAL HIP REPLACEMENT Until the incision and soft tissues around your hip have healed, there is a possibility that the hip prosthesis could dislocate. A. Observe the following precautions to prevent dislocation: 1. Don't bend your hip greater than 90 degrees. 2. Avoid crossing your legs or ankles while standing or lying. 3. Sit with your feet placed 6 inches apart. 4. When sitting, keep your knees below your hips. Sit on a firm surface, avoid deep, soft chairs and couches. Use an elevated toilet seat in the bathroom. 5. Don't bend over at the waist. Use a long handled shoehorn and a sock aid to help you put on your shoes and socks. A surface supervisor can help you flower picker objects that are too high or too low to reach. 6. Keep car riding to a minimum for at least one month after surgery. B. Your balance may be shaky for a while. Use crutches or a walker until directed by your doctor. C. Use hand rails when walking on stairs. D. Wear low heeled shoes with non-slip soles. E. Be sure that your floors are free of things that could trip you - throw rugs , electrical cords, small objects. Avoid wet and waxed floors, especially with crutches and canes. F. Try to walk several times a day with rest periods between. G. Continue with all the exercises taught to you in the hospital. Again, make walking a part of your daily routine. VERY IMPORTANT TO READ AND REVIEW A. Take Coumadin, or Lovenox (blood thinning medications) as directed by your doctor. If you are on Coumadin, have a pro-time (blood test) drawn according to your doctor's instructions. This will tell the doctor how well the Coumadin is thinning your blood. B. There are a few signs you need to watch for after you are home. If you notice any of the followin. Increased severe hip pain. Some pain is expected especially when you exercise. 2. Increased swelling in your leg or knee; pain or swelling of the calf muscle in either lower leg. 3. Any fluid drainage from the incision. 4. Shortness of breath or chest pain. TEDs/Elastic Stockings: * The white elastic stockings help limit swelling and prevent blood clots from forming in your legs. The more you wear them, the more they work. * Wear them for six weeks. Prevention of Infection: * Take antibiotics one hour before any dental cleaning, dental work, urological procedure, gastrointestinal procedure or any invasive surgery in order to prevent your new joint from getting infected. * You may get the antibiotics from the doctor performing the procedure or we will call in a prescription to the pharmacy of your choice. Call the office for a prescription at least 2 days prior to your appointment. Things to Watch For: * Drainage from the incision site that occurs more than one week after your surgery. * Severely increased leg pain or swelling. * Increased redness at the incision site. * Fever above 101 degrees Fahrenheit. * Unusual chest pain or shortness of breath. * Unusual pain or burning with urination. Current Hospital Diet Patient's current hospital diet: Regular Diet Discharge Diet Recommended Diet: Regular Diet Procedures Procedures Performed: Left total hip arthroplasty Pending Studies Studies pending at discharge: no Medical Emergencies . Who to Call and When: Medical Emergencies: If at any time you feel your situation is an emergency, please call 911 immediately. . Non-Emergent Contact Non-Emergency issues call your: Primary Care Provider, Surgeon Call Non-Emergent contact if: temperature is above 101, wound has increased drainage, wound has increased redness, wound has increased pain, you have any medication questions . "Provider Documentation" section prepared by Marco A Wylie PA-C. . VTE Core Measure Inpt VTE Proph given/why not?: Warfarin (Coumadin), T.EJenelle Stockings, SCD's [place] Drug Monitoring Program Search Results: no issues identified
--- NOTE | 2017-01-09 09:09 | Orthopedic Progress Note ---
Orthopedic Progress Note Date of Service Jan 09, 2017. Subjective Post OP Day: 1 Reports: feeling well, pain controlled w PO medications, Denies: complaints, chest pain, SOB, nausea / vomiting, light headedness, calf pain Additional Notes: states he feels well. Happy with his hip and can feel his leg length improvement Objective calves soft nontender, N/V intact, hip located, capillary refill less than 2 sec., dressing C/D/I, incision C/D/I, A&O x3, toes mobile, CMS intact minimal drainage on dressings, no active drainage Date Time Temp Pulse Resp B/P (MAP) Pulse Ox O2 Delivery O2 Flow Rate FiO2 01/09/17 08:59 87 129/80 (96) 01/09/17 07:45 Room Air 01/09/17 07:00 36.6 73 20 119/79 (92) 97 Room Air 01/09/17 02:48 37.3 81 18 134/79 (97) 98 Room Air 01/09/17 00:00 Room Air 01/08/17 22:55 36.9 90 18 125/81 (96) 96 Room Air 01/08/17 21:15 84 137/89 (105) 01/08/17 20:03 36.8 74 18 114/71 (85) 94 Room Air 01/08/17 16:10 97 Room Air 01/08/17 14:45 36.5 75 18 113/69 (84) 95 Nasal Cannula 2.0 01/08/17 13:45 77 19 112/74 (87) 96 Nasal Cannula 2.0 01/08/17 12:48 68 18 106/63 (77) 98 Nasal Cannula 2.0 01/08/17 11:45 36.4 65 18 100/64 (76) 95 Room Air 01/08/17 11:45 95 Nasal Cannula 2.0 01/08/17 11:45 Nasal Cannula 2.0 01/08/17 11:26 97/62 01/08/17 11:25 65 18 96 01/08/17 11:25 64 18 01/08/17 11:21 100/60 01/08/17 11:20 65 14 01/08/17 11:20 65 14 96 01/08/17 11:15 64 16 01/08/17 11:15 63 16 95/57 95 01/08/17 11:14 66 16 01/08/17 11:14 67 16 96 01/08/17 11:12 36.9 01/08/17 11:09 68 18 99 01/08/17 11:09 68 18 01/08/17 11:06 98/60 01/08/17 11:04 68 18 95 01/08/17 11:04 67 18 01/08/17 11:03 66 12 01/08/17 11:03 66 12 96 01/08/17 11:01 96/59 01/08/17 10:58 70 20 01/08/17 10:58 70 20 95 01/08/17 10:56 96/65 01/08/17 10:53 65 20 96 01/08/17 10:53 64 20 01/08/17 10:52 68 22 96 01/08/17 10:52 68 22 01/08/17 10:51 95/64 01/08/17 10:47 66 12 96 01/08/17 10:47 66 12 01/08/17 10:46 94/59 01/08/17 10:42 66 12 01/08/17 10:42 65 12 96 01/08/17 10:41 70 17 93/60 95 01/08/17 10:41 72 17 01/08/17 10:36 70 17 93/63 94 01/08/17 10:36 70 17 01/08/17 10:31 69 17 89/60 94 01/08/17 10:31 69 17 01/08/17 10:27 96/58 01/08/17 10:26 36.7 69 16 96/58 94 Nasal Cannula 2 01/08/17 10:26 71 15 94 01/08/17 10:26 70 15 Laboratory Results 24 Hours: Test 01/09/17 06:21 White Blood Count 15.24 K/uL Red Blood Count 4.62 M/uL Hemoglobin 13.0 g/dL Hematocrit 39.2 % Mean Corpuscular Volume 84.8 fL Mean Corpuscular Hemoglobin 28.1 pg Mean Corpuscular Hemoglobin Concent 33.2 g/dl Platelet Count 263 K/uL Mean Platelet Volume 10.1 fL Neutrophils (%) (Auto) 75.0 % Lymphocytes (%) (Auto) 12.5 % Monocytes (%) (Auto) 11.9 % Eosinophils (%) (Auto) 0.2 % Basophils (%) (Auto) 0.1 % Neutrophils # (Auto) 11.44 K/uL Lymphocytes # (Auto) 1.90 K/uL Monocytes # (Auto) 1.82 K/uL Eosinophils # (Auto) 0.03 K/uL Basophils # (Auto) 0.01 K/uL Prothromb Time International Ratio 1.0 Prothrombin Time 10.6 SECONDS Assessment & Plan Assessment: left hip post op day 1 total hip arthroplasty Plan: PT/OT today continue total hip precautions D/C today to home with home health WBAT follow up in the office in 2 weeks as scheduled coumadin per nomogram dressing changed this morning by me-wound looks very good. Discharge Planning Discharge Planning: home with home health Pain Management: Percocet DVT Prophylaxis: TEDs, SCDs, Coumadin Therapy: Physical Therapy
--- NOTE | 2017-01-09 11:08 | Anesthesiology Progress Note ---
Anesthesia Post Op Note Date & Time Jan 09, 2017 at 11:07 Vital Signs Pain Intensity: 0.0 Vital Signs Past 12 Hours Date Time Temp Pulse Resp B/P (MAP) Pulse Ox O2 Delivery O2 Flow Rate FiO2 01/09/17 08:59 87 129/80 (96) 01/09/17 07:45 Room Air 01/09/17 07:00 36.6 73 20 119/79 (92) 97 Room Air 01/09/17 02:48 37.3 81 18 134/79 (97) 98 Room Air 01/09/17 00:00 Room Air Notes Mental Status: alert / awake / arousable, participated in evaluation Pt Amnestic to Procedure: Yes Nausea / Vomiting: adequately controlled Pain: adequately controlled Airway Patency, RR, SpO2: stable & adequate BP & HR: stable & adequate Hydration State: stable & adequate Neuraxial Anesthesia: was administered, sensory block resolved Anesthetic Complications: no major complications apparent
[2017-01-09 13:24] VITALS: BP 129/80; PULSE 87; TEMP 36.6; O2SAT 97
[2017-01-09] MEDS ORDERED: WARFARIN SOD 5 MG TAB PO ONE (14:00)
== END 2017-01-09 15:30 | disposition home health service (06) | DRG 470 ==
LOC: C.ACU 06:12 → C.3E 06:25 → ENRESERV 11:22
PROVIDERS: ADMIT Physical Medicine & Rehabilitation Sports Medicine; ATTEND Physical Medicine & Rehabilitation Sports Medicine
PROC: 0SRB0JZ Replacement of Left Hip Joint with Synthetic Substitute, Open Approach (ICD-10-PCS; principal; 2017-01-08 08:50)
DX: M16.12 Unilateral primary osteoarthritis, left hip (principal); M87.352 Other secondary osteonecrosis, left femur; I10 Essential (primary) hypertension; F41.9 Anxiety disorder, unspecified; K21.9 Gastro-esophageal reflux disease without esophagitis; G89.29 Other chronic pain; Z79.82 Long term (current) use of aspirin; Z86.73 Personal history of transient ischemic attack (TIA), and cerebral infarction without residual deficits

== ENCOUNTER → 2017-02-24 | Outpatient (CLI) | payer OTHER ==
[~2017-02-24] MED LIST changes: -CEFAZOLIN 2000 MG/60 ML D5W 60 ML IV SCH; -COEN100C11 PO; -HYDR-3419 PO; -LACTATED RINGER'S 1000ML 1,000 ML IV SCH; -LACTATED RINGER'S 1000ML 500 ML IV ONE; -MELO7.5T7 PO; -OMEG500C2 PO; +OXYC-57 PO; -TRANEXAMIC ACID INJ 1,000 MG in SODIUM CHLORIDE 0.9% 100ML 100 ML TOP SCH; +WARF2TAB PO
== END | disposition home or self-care (01) ==
LOC: C.RDSM 08:45
PROVIDERS: ATTEND Physical Medicine & Rehabilitation Sports Medicine
DX: M87.052 Idiopathic aseptic necrosis of left femur (principal)

== ENCOUNTER → 2017-05-07 | Outpatient (CLI) | payer OTHER ==
[~2017-05-07] MED LIST changes: -B-CO1CAP17 PO; -CHOL1000 PO; +CHOLCAP10 PO; -FLUO20CA35 PO; +FLUO40CA8 PO; +MAGN1CAP4 PO; -MAGNESIUM PO; +MELO7.5T5 PO; -QUIN20TA30 PO; +QUIN40TA18 PO; -WARF2TAB PO
--- NOTE | 2017-05-07 16:32 | DIAGNOSTIC IMAGING REPORT ---
CHEST 2 VIEWS ROUTINE CLINICAL HISTORY: Preoperative evaluation. Left hip degenerative joint disease. COMPARISON STUDY: Chest radiograph December 13, 2016. FINDINGS: Lung volumes are normal. There is no pneumothorax or pleural effusion. There is no consolidation to suggest pneumonia. Pulmonary vascular is normal. Cardiac size is normal. Tortuosity of the descending thoracic aorta is again noted. IMPRESSION: No acute cardiopulmonary findings. Electronically signed by: Red Hui M.D. 05/07/2017 4:31 PM Dictated Date/Time: 05/07/2017 4:29 PM
[2017-05-07 17:40] LABS: HEMATOCRIT 46.9 % (42-52); HEMOGLOBIN 15.5 g/dL (14.0-18.0); MEAN CELL VOLUME 86.9 fL (80-100); MEAN CORPUSCULAR HEMOGLOBIN 28.7 pg (25-34); MEAN PLATELET VOLUME 11.2 fL (7.4-10.4); PLATELET COUNT 250 K/uL (130-400); RED CELL DISTRIBUTION WIDTH CV 15.3 % (11.5-14.5); RED CELL DISTRIBUTION WIDTH SD 48.6 fL (36.4-46.3); WHITE BLOOD COUNT 8.74 K/uL (4.8-10.8)
[2017-05-07 17:45] LABS: PTT PATIENT 26.1 SECONDS (21.0-31.0)
[2017-05-07 17:57] LABS: BLOOD UREA NITROGEN 21 mg/dl (7-18); CARBON DIOXIDE 22 mmol/L (21-32); CREATININE 1.03 mg/dl (0.60-1.40); POTASSIUM 3.9 mmol/L (3.5-5.1); SODIUM 137 mmol/L (136-145)
== END | disposition home or self-care (01) ==
LOC: C.LABPVFM 15:49
PROVIDERS: ATTEND Physician Assistant
DX: M87.9 Osteonecrosis, unspecified (principal); M19.90 Unspecified osteoarthritis, unspecified site

== ENCOUNTER 2017-05-14 05:09 | Inpatient (IN) | payer OTHER ==
[2017-05-05 12:14] VITALS: Ht 182.9 cm; Wt 93.6 kg
--- NOTE | 2017-05-09 09:17 | HISTORY & PHYSICAL EXAMINATION ---
DATE OF ADMISSION: 05/28/2017 CHIEF COMPLAINT: Right hip pain. HISTORY OF PRESENT ILLNESS: This 61-year-old white male presents to the office with complaints of right hip pain that has been ongoing for several years. No specific trauma. He previously had left hip pain and underwent total hip arthroplasty on 01/01/2017. He did very well with that and elects to proceed with the same on the right. Symptoms became worse in last April. He has difficulty with ambulation. Hip pain is worse with bending or use of stairs. It is anterior in the groin. It is affecting his ADLs. He has a history of L2 through L5 lumbar surgery in 2012. He does have known muscle wasting and foot drop on the left side residual from that. He ambulates with a walker. He has tried oral pain medication, oral anti-inflammatories, and intra-articular cortisone injections without lasting relief. Preoperative x-rays have been obtained. PAST MEDICAL HISTORY: Significant for hypertension, elevated cholesterol, anxiety, peripheral neuropathy, history of mini stroke, GERD, osteoarthritis, chronic low back pain, and chipped teeth. PAST SURGICAL HISTORY: Back surgery in 1992 and 2012, carpal tunnel release in 2003, toe surgery in 2013, colonoscopy in 2014, and left total hip arthroplasty in 01/01/2017. FAMILY HISTORY: Noncontributory. SOCIAL HISTORY: The patient is on disability. No ETOH use. Smokes a pipe daily. . ALLERGIES: NKDA. CURRENT MEDICATIONS: [place] 5/325 mg 1 tablet t.i.d. p.r.n., aspirin 81 mg daily, fluticasone nasal spray 50 mcg 1 spray in each nostril daily, fluoxetine daily unknown dose, lorazepam 0.5 mg p.o. p.r.n., magnesium oxide 500 mg p.o. daily, meclizine p.r.n., Asacol HD 800 mg 2 tablets p.o. t.i.d., metoprolol 50 mg p.o. daily, multivitamin daily, omeprazole 20 mg p.o. daily, quinapril 40 mg p.o. daily, coenzyme Q10 daily, and HCTZ 25 mg p.o. daily. REVIEW OF SYSTEMS: Significant for above stated conditions. Otherwise unremarkable. PHYSICAL EXAMINATION: GENERAL: Well-developed and well-nourished middle aged white male, in no acute distress. Sitting on a chair. Alert and oriented. Looks older than his stated age. SKIN: Warm and dry with good turgor. No rashes or lesions. No ecchymosis or erythema. HEENT: Normocephalic and atraumatic. Eyes, PERRLA and EOMI. Nares patent bilaterally without turbinate enlargement. Oropharynx without erythema or exudate. No lesions noted. Uvula midline. Oral mucosa moist. Fair dentition. Numerous fillings are noted. HEART: RRR. No MGR. LUNGS: Clear to auscultation bilaterally. No crackles, rhonchi or wheezing. Fair air movement. ABDOMEN: Bowel sounds present x4. Soft and nontender. No organomegaly. No masses. MUSCULOSKELETAL: Right hip has no obvious asymmetry or deformity. He has flexion to around 100 degrees. Limited internal and external rotation secondary to discomfort. Strength is 4/5 for flexion of the hip. No pain with palpation over the greater trochanter. Ambulatory using his walker with an antalgic gait. He continues with an AFO on the left foot. NEUROLOGIC: Cranial nerves II through XII are intact. Gross sensation is intact across the right leg by soft touch. Peripheral pulses are 2+. DATA: Radiographic imaging previously obtained shows end-stage DJD of the right hip with AVN. Periarticular osteophytes and subchondral sclerosis are also present. 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 PLAN: Postoperative prescriptions for Percocet and Coumadin will be provided at discharge from the hospital. Preoperative lab work and EKG were ordered. Chest x-ray is up to date. He will obtain medical clearance from his PCP. He would like to go home with 2 weeks of home health services and then outpatient PT at discharge. He already has a walker. Informed written consent to proceed with right hip total hip arthroplasty will be obtained in the morning of surgery.
[2017-05-14] VITALS (10 sets, daily range): BP systolic 97–133; BP diastolic 61–92; PULSE 60–99; TEMP 36.5–37.2; O2SAT 93–98
[~2017-05-14] VITALS: Ht 182.9 cm; Wt 93.6 kg
[2017-05-14] MEDS ORDERED: LACTATED RINGER'S 1000ML 1,000 ML IV SCH (06:00)
[2017-05-14] MEDS ORDERED: LACTATED RINGER'S 1000ML 500 ML IV SCH (06:00)
[2017-05-14] MEDS ORDERED: LACTATED RINGER'S 1000ML IV SCH (06:00)
[2017-05-14] MEDS ORDERED: CEFAZOLIN 2000MG IV PUSH 10 ML IV SCH (06:00)
[2017-05-14] MEDS ORDERED: ROPIVACAINE 5MG/ML 30 ML 150 MG, BUPIVACAINE/EPINEPHR 0.5% MPF 30 ML, KETOROLAC TROMETH... INFIL SCH ×7 (06:00)
[2017-05-14] MEDS ORDERED: TRANEXAMIC ACID INJ 1,000 MG in SYRINGE 0 ML TOP SCH (06:00)
[2017-05-14] MEDS ORDERED: TRANEXAMIC ACID INJ 1,000 MG in SYRINGE 0 ML IV SCH (06:00)
[2017-05-14] MEDS ORDERED: BUPIVACAINE 0.5 % 5 MG/1 ML PF 10ML VIAL ONE (06:20)
--- NOTE | 2017-05-14 06:26 | History & Physical Bridge Note ---
H&P Re-Evaluation Bridge Note: I have examined the patient, reviewed the History & Physical and in the interval since the performance of the History & Physical I have noted the following changes of clinical significance: consent reviewed.No changes noted
[2017-05-14] MEDS ORDERED: POVIDONE-IODINE OP SOLN 30 ML BTL ONE (06:34)
[2017-05-14] MEDS ORDERED: ORTHO JOINT ANESTHETIC ONE (06:34)
[2017-05-14] MEDS ORDERED: MIDAZOLAM HCL 1 MG/ML 2ML VIAL ONE (06:42)
[2017-05-14] MEDS ORDERED: LIDOCAINE HCL 2% 2 ML VIAL (20MG/ML) ONE (06:45)
[2017-05-14] MEDS ORDERED: PROPOFOL IV EMULSION 10 MG/ML 20 ML VIAL IV ONE ×2 (06:45→07:41)
[2017-05-14] MEDS ORDERED: FENTANYL CITRATE INJ 50 MCG/1 ML 2 ML VIAL ONE (06:46)
[2017-05-14 07:04] LABS: BASO % 0.6 %; BASO ABS # 0.06 K/uL (0-0.2); EOS % 2.9 %; EOS ABS # 0.28 K/uL (0-0.5); HEMATOCRIT 49.7 % (42-52); HEMOGLOBIN 16.7 g/dL (14.0-18.0); IG# 0.01 K/uL (0.00-0.02); LYMPH % 22.4 %; LYMPH ABS # 2.15 K/uL (1.2-3.4); MEAN CELL VOLUME 85.4 fL (80-100); MEAN CORPUSCULAR HEMOGLOBIN 28.7 pg (25-34); MEAN PLATELET VOLUME 11.1 fL (7.4-10.4); MONO % 10.9 %; MONO ABS # 1.05 K/uL (0.11-0.59); NEUT % 63.1 %; NEUT ABS # 6.04 K/uL (1.4-6.5); PLATELET COUNT 224 K/uL (130-400); RED CELL DISTRIBUTION WIDTH CV 15.2 % (11.5-14.5); RED CELL DISTRIBUTION WIDTH SD 47.5 fL (36.4-46.3); WHITE BLOOD COUNT 9.59 K/uL (4.8-10.8)
[2017-05-14 07:16] LABS: MEAN CORPUSCULAR HGB CONC 33.6 g/dl (32-36)
[2017-05-14] MEDS ORDERED: ONDANSETRON INJ 2 MG/ML 2 ML VIAL ONE (07:27)
[2017-05-14] MEDS ORDERED: PHENYLEPHRINE 100MCG/ML 5ML SYR ONE (07:28)
[2017-05-14] MEDS ORDERED: EpHEDrine SULFATE 50MG/5ML SYR ONE (07:28)
[2017-05-14] MEDS ORDERED: TRANEXAMIC ACID INJ 1,000 MG in SODIUM CHLORIDE 0.9% 100ML 100 ML TOP SCH (07:30)
[2017-05-14] MEDS ORDERED: CEFAZOLIN SOD 1 GM VIAL ONE (07:57)
--- NOTE | 2017-05-14 08:21 | [facility] Post Operative Brief Note ---
Immediate Operative Summary Operative Date May 14, 2017. 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 Brooks Animal Control Officer Surgeon(s) ZACARIAS Chappell Estimated Blood Loss 200 ml Findings djd advanced Fluids (cc crystalloids) 1100cc Specimens A. Right Femoral Head Drains none Anesthesia spinal Complication(s) None Disposition Recovery Room / PACU
[2017-05-14] MEDS ORDERED: ACETAMINOPHEN 325 MG TAB PO PRN (08:30)
[2017-05-14] MEDS ORDERED: MECLIZINE HCL 25 MG TAB PO PRN (08:30)
[2017-05-14] MEDS ORDERED: TAMSULOSIN HCL 0.4 MG CAP PO PRN (08:30)
[2017-05-14] MEDS ORDERED: BISACODYL 10 MG SUPP PR PRN (08:30)
[2017-05-14] MEDS ORDERED: DiphenhydrAMINE HCL 50 MG/ML VIAL IV PRN (08:30)
[2017-05-14] MEDS ORDERED: OXYCODONE HCL IR 5 MG TAB (IMMEDIATE RELEASE) PO PRN (08:30)
[2017-05-14] MEDS ORDERED: MAGNESIUM HYDROXIDE SUSP 30 ML UDC PO PRN (08:30)
[2017-05-14] MEDS ORDERED: ALUMINUM/MAGNESIUM/SIMETH (MAALOX MAX) 30 ML UDC PO PRN (08:30)
[2017-05-14] MEDS ORDERED: LORAZEPAM 0.5 MG TAB PO PRN (08:30)
[2017-05-14] MEDS ORDERED: ONDANSETRON INJ 2 MG/ML 2 ML VIAL IV PRN ×2 (08:30→09:15)
[2017-05-14] MEDS ORDERED: FLUTICASONE PROPIONATE NA SPR 16 GM BTL NAE PRN (08:30)
[2017-05-14] MEDS ORDERED: METOCLOPRAMIDE HCL INJ 5 MG/ML 2 ML VIAL IV PRN (08:30)
[2017-05-14] MEDS ORDERED: MoRPHine SULFATE 2 MG/ML CARP IV PRN (08:30)
[2017-05-14] MEDS ORDERED: LOPERAMIDE HCL 2 MG CAP PO PRN (08:30)
--- NOTE | 2017-05-14 08:40 | OPERATIVE REPORT ---
DATE OF OPERATION: 05/14/2017 SURGEON: Pavan Brooks MD. TRIPE COOKER: Marco A Wylie PA-C. No resident or fellow available. PREOPERATIVE DIAGNOSIS: Osteoarthritis, right hip. POSTOPERATIVE DIAGNOSIS: Same. OPERATION PERFORMED: Noncemented right total hip replacement. SUMMARY OF IMPLANTS: Size 52 cup acetabular shell sector hole eliminator, cancellous screw 6.5 x 30, liner 36 x 52 neutral, high offset Tri-Lock size 7 and 36+12 head. ESTIMATED BLOOD LOSS: 200 mL. CRYSTALLOID: 1200 mL. PERIOPERATIVE SITUATION: Medically cleared male with intractable right hip pain. He had a previous left hip replacement done within the last year for AVN and severe disease. This hip is very similar. Options were discussed. Consent obtained. All risks and so forth were discussed. DESCRIPTION OF PROCEDURE: The patient appropriately identified, site verified, consent verified, 2 grams of Ancef confirmed as being given. The right lower extremity was prepped and draped in usual routine fashion with the patient in the left lateral decubitus position. Leg lengths were slightly off with the right being slightly long. The posterior approach to the hip was then made. Sharp dissection carried to the skin and blunt dissection down to the fascia. This was then incised under direct vision. The gluteus weston fascia and IT band fascia incised and then the short external rotators were identified and released. They were quite contracted. The capsule was then teed, the hip was dislocated. There was an exuberant amount of fluid. The femoral neck was then resected. The head had a very significant defect and it looking like he had AVN. There was also significant degenerative disease. The labrum was then excised. Serial reaming carried up to a 52 and a 52 cup impacted into appropriate inclination and anteversion. It had excellent rim fit. Minor osteophytes were removed around the margin. A 6.5 x 30 screw placed with excellent fixation. A trial liner seated. The femur was then flexed and internally rotated. The proximal femur prepared with telephone coin box collector, lateralizing rasp, and serial broaching up to a size 7. High offset trial with +12 was excellent. Leg lengths were within millimeters of equality. The hip was then dislocated. The trial remaining implants removed. The wound irrigated with Betadine, Pulsavac, hole eliminator seated, permanent liner seated, permanent head and neck seated and then the hip reduced and it was stable in all planes. Leg lengths were excellent. Slightly long on the right as preop. The wound was then irrigated with Betadine, Pulsavac and then closed with #2 Vicryl for the deep fascia and deep fat, 2-0 Vicryl for the subcutaneous layer and stainless steel clips for skin. The subcutaneous area was injected with the Orthomix 4 syringes worth. It should be mentioned that additional gram of Ancef was placed IV prior to closing the wound. Try to be compliant with the recommendations from the CDC postop antibiotics. The wound was then appropriately dressed. It should be also mentioned that there was a small ingrown hair that was covered with Op-Site that was outside the incision. The patient was then transferred to recovery room in satisfactory condition having tolerated the procedure well. DVT prophylaxis per protocol. I attest to the content of the Intraoperative Record and any orders documented therein. Any exception s are noted below.
--- NOTE | 2017-05-14 09:02 | DIAGNOSTIC IMAGING REPORT ---
PELVIS 1 OR 2 VIEW ROUTINE HISTORY: 61 years-old Male s/p R hip SALVADOR status post right hip total joint arthroplasty. Degenerative joint disease. COMPARISON: Pelvis radiograph 01/08/2017 TECHNIQUE: Single AP view of the pelvis FINDINGS: Bilateral hip arthroplasties are noted in satisfactory alignment. Postoperative changes are noted about the right hip with expected postsurgical soft tissue swelling and deep tissue air. Skin nirmal are noted. No periprosthetic fracture or retained foreign bodies. Peripheral vascular disease. IMPRESSION: Status post right hip total joint arthroplasty with satisfactory alignment. The above report was generated using voice recognition software. It may contain grammatical, syntax or spelling errors. Electronically signed by: Estiven Simon M.D. 05/14/2017 9:01 AM Dictated Date/Time: 05/14/2017 9:00 AM
--- NOTE | 2017-05-14 09:13 | Anesthesiology Progress Note ---
Anesthesia Post Op Note Date & Time May 14, 2017 at 09:13 Vital Signs Pain Intensity: 0 Vital Signs Past 12 Hours Date Time Temp Pulse Resp B/P (MAP) Pulse Ox O2 Delivery O2 Flow Rate FiO2 05/14/17 08:56 68 18 05/14/17 08:56 67 18 97 05/14/17 08:55 103/67 05/14/17 08:51 67 17 05/14/17 08:51 68 17 96 05/14/17 08:50 90/60 05/14/17 08:46 66 14 99 05/14/17 08:46 66 14 05/14/17 08:45 107/68 05/14/17 08:42 68 18 05/14/17 08:42 67 18 98 05/14/17 08:40 102/68 05/14/17 08:37 66 15 05/14/17 08:37 66 15 99 05/14/17 08:35 104/68 05/14/17 08:32 76 17 05/14/17 08:32 75 17 99 05/14/17 08:30 97/71 05/14/17 08:27 36.1 69 16 113/62 (70) 96 Oxymask 10 05/14/17 08:27 72 17 113/62 97 05/14/17 08:27 71 17 05/14/17 06:04 36.6 74 18 130/92 94 Room Air Notes Mental Status: alert / awake / arousable, participated in evaluation Pt Amnestic to Procedure: Yes Nausea / Vomiting: adequately controlled Pain: adequately controlled Airway Patency, RR, SpO2: stable & adequate BP & HR: stable & adequate Hydration State: stable & adequate Neuraxial Anesthesia: was administered, sensory block is resolving Anesthetic Complications: no major complications apparent
[2017-05-14] MEDS ORDERED: EpHEDrine SULFATE INJ 50 MG/ML AMP IV PRN (09:15)
[2017-05-14] MEDS ORDERED: ATROPINE SULFATE 0.1 MG/ML 5ML SYR IV PRN (09:15)
[2017-05-14] MEDS ORDERED: D5W AND 1/2NSS + 20MEQ KCL 1,000 ML IV SCH (10:30)
[2017-05-14] MEDS: FLUOXETINE HCL 20 MG CAP PO SCH (12:02)
[2017-05-14] MEDS ORDERED: MoRPHine SULFATE 4 MG/ML 1 ML CARP\\VIAL IV PRN (12:15)
--- NOTE | 2017-05-14 12:57 | [facility] Operative Report ---
Operative Report Operative Date May 14, 2017. 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 Brooks Personal Development Mentor Surgeon(s) ZACARIAS Banks Estimated Blood Loss 200 ml Findings Right hip DJD Fluids 1100cc Specimens A. Right Femoral Head Drains none Anesthesia spinal Complication(s) None Disposition Recovery Room / PACU Indications This 61-year-old white male presented to the office complaints of intractable right hip pain. He had known DJD of the hip joint. He elected to proceed with surgical intervention after being educated about potential risks and outcomes. He did try conservative care measures including activity modification, oral pain medication, and use of a cane and walker without improvement. Preoperative imaging was obtained. Description of Procedure Patient was taken to the operating room after being administered a spinal anesthetic and regional block. He was prepped and draped in usual sterile fashion. Please see Dr. Brooks's operative report for specifics of the procedure. I was present for the entire case from initial patient positioning through final wound closure. Assistance was provided in tissue traction, hemostasis, trial implant placement, final implant placement, and final wound closure. Patient was taken to the recovery room in satisfactory condition. I attest to the content of the Intraoperative Record and any orders documented therein. Any exceptions are noted below.
--- NOTE | 2017-05-14 13:17 | Progress Note ---
Progress Note Date of Service May 14, 2017. Progress Note Postop check: Patient denies any chest pain shortness breath fever chills nausea vomiting or headache. He notes that the block starting to wear off he cannot wiggle his right foot. Of note is that he has significant foot drop on the left which is at baseline. Vital signs are stable he's afebrile. Eating well abdomen soft nontender cast nontender. Neurovascular check right lower extremity involved side reveals intact femoral nerve function with good quad and developing sciatic nerve both superficial and deep peroneal and posterior tib function starting to return. Postop x-rays look excellent. Assessment doing well. Have licensed clinical social worker see for potential discharge tomorrow. Hep-Lock IV as he is eating well. Coumadin per nomogram. Dictated not read
[2017-05-14] MEDS ORDERED: OXYC-57 PO (13:29)
[2017-05-14] MEDS ORDERED: WARF2TAB PO (13:29)
[2017-05-14] MEDS: ACETAMINOPHEN IV 1,000 MG in EMPTY BAG 0 ML IV SCH ×2 (15:07→21:33)
[2017-05-14] MEDS: KETOROLAC TROMETHAMINE 30 MG/ML VIAL IV. SCH ×2 (15:07→20:35)
[2017-05-14] MEDS ORDERED: WARFARIN SOD 5 MG TAB PO SCH (16:00)
[2017-05-14] MEDS: FERROUS GLUCONATE 324 MG TAB PO SCH (17:58)
[2017-05-14] MEDS ORDERED: MAGNESIUM OXIDE 400 MG TAB PO SCH ×2 (21:00)
[2017-05-14] MEDS: METOPROLOL TARTRATE 25 MG TAB PO SCH (21:32)
[2017-05-14] MEDS: DOCUSATE SODIUM 100 MG CAP PO SCH (21:32)
[2017-05-15] MEDS: KETOROLAC TROMETHAMINE 30 MG/ML VIAL IV. SCH ×2 (02:29→08:08)
[2017-05-15 03:19] VITALS: BP 101/61; PULSE 75; TEMP 36.8; O2SAT 95
[2017-05-15] MEDS: ACETAMINOPHEN IV 1,000 MG in EMPTY BAG 0 ML IV SCH (05:16)
[2017-05-15 06:53] LABS: BASO % 0.1 %; BASO ABS # 0.02 K/uL (0-0.2); EOS % 0.2 %; EOS ABS # 0.03 K/uL (0-0.5); HEMOGLOBIN 13.2 g/dL (14.0-18.0); IG# 0.03 K/uL (0.00-0.02); LYMPH % 10.8 %; LYMPH ABS # 1.46 K/uL (1.2-3.4); MEAN CELL VOLUME 85.5 fL (80-100); MEAN CORPUSCULAR HEMOGLOBIN 28.2 pg (25-34); MEAN PLATELET VOLUME 10.9 fL (7.4-10.4); MONO % 12.2 %; MONO ABS # 1.65 K/uL (0.11-0.59); NEUT % 76.5 %; NEUT ABS # 10.39 K/uL (1.4-6.5); PLATELET COUNT 181 K/uL (130-400); WHITE BLOOD COUNT 13.58 K/uL (4.8-10.8)
[2017-05-15 06:55] VITALS: BP 144/72; PULSE 82; TEMP 36.7; O2SAT 95
--- NOTE | 2017-05-15 07:00 | PROGRESS NOTE ---
DATE: 05/15/2017 Postop day #1 status post right total hip replacement. SUBJECTIVE: The patient is doing well. He is sitting on the toilet. He is conversing well He has no issues with pain. He has been up ambulatory. He denies chest pain, shortness of breath, fever, chills, nausea, vomiting or headache. OBJECTIVE: VITAL SIGNS: Stable. He is afebrile. EXTREMITIES: Wound dressing clean, dry and intact. NEUROLOGIC: Sciatic and femoral nerve function on the right is baseline. ASSESSMENT: Overall, doing well. Discharge to home today. INR is 1.0. Discharge on 4 mg Coumadin. Check INR on Friday. Follow up in 2 weeks for dressing, suture and staple removal.
[2017-05-15 07:04] LABS: CALCIUM 8.4 mg/dl (8.5-10.1); CREATININE 0.78 mg/dl (0.60-1.40); POTASSIUM 3.9 mmol/L (3.5-5.1)
--- NOTE | 2017-05-15 07:04 | DISCHARGE SUMMARY ---
CHIEF COMPLAINT: Right hip pain. HISTORY OF PRESENT ILLNESS: The patient underwent elective right total hip replacement with no issues. At this point in time, he is doing well and he is requesting to be discharged. PAST MEDICAL HISTORY: Remarkable for hypertension, hypercholesterolemia, anxiety, peripheral neuropathy, history of mini stroke, GERD, osteoarthritis, low back pain and chipped teeth. PAST SURGICAL HISTORY: Remarkable for back surgery multiple times, carpal tunnel release, toe surgery, colonoscopy, left total hip replacement in December. FAMILY HISTORY: Noncontributory. SOCIAL HISTORY: Reveals he is on disability. No alcohol use. Smokes pipe. He is . ALLERGIES: None. PREADMISSION MEDICATIONS: Include Bowen, aspirin, fluconazole, duloxetine, lorazepam, magnesium oxide, meclizine, Asacol, metoprolol, multivitamins, omeprazole, quinapril, Coenzyme Q10, hydrochlorothiazide. He will continue all those meds. Also add Coumadin to keep INR 1.8-2.2. His INR this morning is 1.0. Will discharge on 4 mg daily and check on Friday. REVIEW OF SYSTEMS: Noncontributory. ASSESSMENT: Doing well status post right total replacement. Dressing change later today. Discharge after lunch today. Follow up in 2 weeks for staple removal. Postural precautions identified and instructed the patient in detail.
[2017-05-15] MEDS ORDERED: DEXAMETHASONE INJ 10 MG in SYRINGE 0 ML IV ONE (07:30)
[2017-05-15 08:00] VITALS: O2SAT 95
[2017-05-15] MEDS: FERROUS GLUCONATE 324 MG TAB PO SCH (08:09)
--- NOTE | 2017-05-15 08:13 | Discharge Instructions ---
Discharge Instructions Date of Service May 14, 2017. Admission Reason for Admission: Right Hip Avascular Necrosis, Degenerative Joint D Discharge Discharge Diagnosis / Problem: Right hip s/p total hip replacement Discharge Goals Goal(s): Decrease discomfort, Improve function, Increase independence Activity Recommendations Activity Limitations: as noted below Lifting Limitations: gradually increase as tolerated Exercise/Sports Limitations: until after follow-up appointment Shower/Bathe: keep incision dry Driving or Machine Use: No driving until cleared by Dr. Brooks Weightbearing Status: Right weightbearing (as tolerated) . Instructions / Follow-Up Instructions / Follow-Up New Medicine: * You will likely be taking one or more of these medicines: 1. Percocet - Take, as directed, when you need it, every four to six hours to control your pain. 2. Coumadin - Thins your blood to lessen the chance of forming a blood clot. The dose of this is different for each person and is based on your blood tests that are done twice a week. * The most common side effects of pain medicine and iron are nausea and constipation. If nausea or constipation is too much of a problem or if you have any questions about your new medicines or doses, call [facility] at . We will try to help you manage these issues. VERY IMPORTANT TO READ AND REVIEW" Blood Clots and Blood Thinning Medicine: * You are given Coumadin during the immediate post-operative period to lessen the risk of blood clots forming in your legs and/or lungs. Coumadin is usually given for six weeks after surgery. * The prescription is for 2 mg tablets. At discharge, you should understand your dose and take it all at the same time every day, preferably after dinner. * You need to get your blood checked 1 - 2 times per week for six weeks, or as directed. * If your dose needs to change, we will call you. Do not take your medication on the day of the blood test until we call you. * If you don't hear from us after your blood draws, keep taking the same dose. Pain: * The immediate post-operative period after hip replacement surgery is often quite painful. * You are given a prescription for pain medicine. You should take it, as directed, when you need it, especially before physical therapy and before going to bed. Pain that interferes with sleep is very common and can last several months. * You will likely need pain medicine for the first two to four weeks. It will not stop all of the pain. The pain will lessen and as you feel better, you may change to milder pain medicine such as Tylenol. * The most common side effects of pain medicine are nausea and constipation, so don't take more than you need. Physical Therapy: * Follow the "Hip Precautions Instructions." * In some cases, the public health social worker at the hospital will arrange to have a therapist come to your house for the first couple of weeks to help you learn these skills. * You need to practice on your own or with the help of a family member as needed. * When you learn these skills, most of the therapy can be done on your own. Home Exercise: * You were shown a series of exercises in the hospital. Do these exercises three to four times each day including the exercises you were shown in physical therapy. Walking: * Get up and walk several times each day. For the first four weeks, try not to stand or walk for more than one hour at a time. If you do stand or walk for more than one hour, you will not hurt anything, but your leg will likely swell. * As you feel comfortable, you may change from the walker or crutches to a cane and then to independent walking. SELF CARE INSTRUCTIONS AFTER TOTAL HIP REPLACEMENT Until the incision and soft tissues around your hip have healed, there is a possibility that the hip prosthesis could dislocate. A. Observe the following precautions to prevent dislocation: 1. Don't bend your hip greater than 90 degrees. 2. Avoid crossing your legs or ankles while standing or lying. 3. Sit with your feet placed 6 inches apart. 4. When sitting, keep your knees below your hips. Sit on a firm surface, avoid deep, soft chairs and couches. Use an elevated toilet seat in the bathroom. 5. Don't bend over at the waist. Use a long handled shoehorn and a sock aid to help you put on your shoes and socks. A fish farmer can help you grape picker objects that are too high or too low to reach. 6. Keep car riding to a minimum for at least one month after surgery. B. Your balance may be shaky for a while. Use crutches or a walker until directed by your doctor. C. Use hand rails when walking on stairs. D. Wear low heeled shoes with non-slip soles. E. Be sure that your floors are free of things that could trip you - throw rugs , electrical cords, small objects. Avoid wet and waxed floors, especially with crutches and canes. F. Try to walk several times a day with rest periods between. G. Continue with all the exercises taught to you in the hospital. Again, make walking a part of your daily routine. VERY IMPORTANT TO READ AND REVIEW A. Take Coumadin, or Lovenox (blood thinning medications) as directed by your doctor. If you are on Coumadin, have a pro-time (blood test) drawn according to your doctor's instructions. This will tell the doctor how well the Coumadin is thinning your blood. B. There are a few signs you need to watch for after you are home. If you notice any of the followin. Increased severe hip pain. Some pain is expected especially when you exercise. 2. Increased swelling in your leg or knee; pain or swelling of the calf muscle in either lower leg. 3. Any fluid drainage from the incision. 4. Shortness of breath or chest pain. TEDs/Elastic Stockings: * The white elastic stockings help limit swelling and prevent blood clots from forming in your legs. The more you wear them, the more they work. * Wear them for six weeks. Prevention of Infection: * Take antibiotics one hour before any dental cleaning, dental work, urological procedure, gastrointestinal procedure or any invasive surgery in order to prevent your new joint from getting infected. * You may get the antibiotics from the doctor performing the procedure or we will call in a prescription to the pharmacy of your choice. Call the office for a prescription at least 2 days prior to your appointment. Things to Watch For: * Drainage from the incision site that occurs more than one week after your surgery. * Severely increased leg pain or swelling. * Increased redness at the incision site. * Fever above 101 degrees Fahrenheit. * Unusual chest pain or shortness of breath. * Unusual pain or burning with urination. Current Hospital Diet Patient's current hospital diet: Regular Diet Discharge Diet Recommended Diet: Regular Diet Procedures Procedures Performed: Right Total Hip Arthroplasty--Uncemented Pending Studies Studies pending at discharge: no Medical Emergencies . Who to Call and When: Medical Emergencies: If at any time you feel your situation is an emergency, please call 911 immediately. . Non-Emergent Contact Non-Emergency issues call your: Primary Care Provider, Surgeon Call Non-Emergent contact if: temperature is above 101, wound has increased drainage, wound has increased redness, wound has increased pain, you have any medication questions . "Provider Documentation" section prepared by Marco A Wylie PA-C. . VTE Core Measure Inpt VTE Proph given/why not?: Warfarin (Coumadin), Gregorio Sanders, SCD's [place] Drug Monitoring Program Search Results: no issues identified
--- NOTE | 2017-05-15 08:25 | Orthopedic Progress Note ---
Orthopedic Progress Note Date of Service May 15, 2017. Subjective Post OP Day: 1 Reports: feeling well, pain controlled w PO medications, Denies: complaints, chest pain, SOB, nausea / vomiting, light headedness, calf pain Additional Notes: sitting in chair, waiting for breakfast Objective calves soft nontender, N/V intact, hip located, capillary refill less than 2 sec., dressing C/D/I, incision C/D/I, A&O x3, toes mobile, CMS intact dressing clean, no active drainage. Stands well. Date Time Temp Pulse Resp B/P (MAP) Pulse Ox O2 Delivery O2 Flow Rate FiO2 05/15/17 06:55 36.7 82 16 144/72 (96) 95 Room Air 05/15/17 03:19 36.8 75 17 101/61 (74) 95 Room Air 05/14/17 23:18 36.8 83 17 101/61 (74) 95 Room Air 05/14/17 21:33 99 102/67 (79) 05/14/17 20:40 Room Air 05/14/17 18:29 37.0 88 16 131/78 (95) 93 Room Air 05/14/17 14:39 36.7 85 18 133/78 (96) 94 Room Air 05/14/17 12:41 37.2 84 16 97/64 (75) 97 Nasal Cannula 2.0 05/14/17 11:39 36.5 74 16 99/64 (76) 98 Nasal Cannula 2.0 05/14/17 10:38 36.8 64 17 104/69 (81) 95 Nasal Cannula 2.0 05/14/17 10:08 60 18 104/69 (81) 97 Nasal Cannula 2.0 05/14/17 09:40 97 Nasal Cannula 05/14/17 09:40 97 Nasal Cannula 2.0 05/14/17 09:40 36.6 69 18 99/61 (74) 97 Nasal Cannula 2.0 05/14/17 09:30 101/65 05/14/17 09:26 66 10 99 05/14/17 09:26 66 10 05/14/17 09:21 64 12 99/61 96 05/14/17 09:21 64 12 05/14/17 09:16 64 10 05/14/17 09:16 63 10 94 05/14/17 09:15 92/61 1/17/18 09:12 65 17 96 05/14/17 09:12 67 17 05/14/17 09:10 99/67 05/14/17 09:08 36.8 66 17 99/67 (73) 95 Nasal Cannula 2 05/14/17 09:08 98/66 05/14/17 09:07 66 20 96 05/14/17 09:07 66 20 05/14/17 09:05 97/64 05/14/17 09:02 64 13 05/14/17 09:02 64 13 95 05/14/17 09:00 107/70 05/14/17 08:57 65 10 05/14/17 08:57 64 10 97 05/14/17 08:56 68 18 05/14/17 08:56 67 18 97 05/14/17 08:55 103/67 05/14/17 08:51 67 17 05/14/17 08:51 68 17 96 05/14/17 08:50 90/60 05/14/17 08:46 66 14 99 05/14/17 08:46 66 14 05/14/17 08:45 107/68 05/14/17 08:42 68 18 05/14/17 08:42 67 18 98 05/14/17 08:40 102/68 05/14/17 08:37 66 15 05/14/17 08:37 66 15 99 05/14/17 08:35 104/68 05/14/17 08:32 76 17 05/14/17 08:32 75 17 99 05/14/17 08:30 97/71 05/14/17 08:27 36.1 69 16 113/62 (70) 96 Oxymask 10 05/14/17 08:27 72 17 113/62 97 05/14/17 08:27 71 17 Laboratory Results 24 Hours: Test 05/15/17 05:33 White Blood Count 13.58 K/uL Red Blood Count 4.68 M/uL Hemoglobin 13.2 g/dL Hematocrit 40.0 % Mean Corpuscular Volume 85.5 fL Mean Corpuscular Hemoglobin 28.2 pg Mean Corpuscular Hemoglobin Concent 33.0 g/dl Platelet Count 181 K/uL Mean Platelet Volume 10.9 fL Neutrophils (%) (Auto) 76.5 % Lymphocytes (%) (Auto) 10.8 % Monocytes (%) (Auto) 12.2 % Eosinophils (%) (Auto) 0.2 % Basophils (%) (Auto) 0.1 % Neutrophils # (Auto) 10.39 K/uL Lymphocytes # (Auto) 1.46 K/uL Monocytes # (Auto) 1.65 K/uL Eosinophils # (Auto) 0.03 K/uL Basophils # (Auto) 0.02 K/uL Prothromb Time International Ratio 1.0 Prothrombin Time 10.3 SECONDS Assessment & Plan Assessment: Right hip post op day 1 SALVADOR Plan: dressing changed, wound looks very good PT/OT today continue total hip precautions follow up in the office in 2 weeks for staple removal coumadin per nomogram Discharge Planning Discharge Planning: home with home health Pain Management: Percocet DVT Prophylaxis: TEDs, SCDs, Coumadin
[2017-05-15] MEDS: DOCUSATE SODIUM 100 MG CAP PO SCH (09:00)
[2017-05-15] MEDS ORDERED: HYDROCHLOROTHIAZIDE 25 MG TAB PO SCH (09:00)
[2017-05-15] MEDS ORDERED: ASPIRIN 81 MG ECTAB PO SCH (09:00)
[2017-05-15] MEDS ORDERED: ENALAPRIL MALEATE 10 MG TAB PO SCH (09:00)
[2017-05-15] MEDS ORDERED: PANTOprazole SOD 40 MG TAB PO SCH (09:00)
[2017-05-15] MEDS ORDERED: MULTIVITAMIN TAB PO SCH (09:00)
[2017-05-15 09:18] VITALS: BP 135/79; PULSE 85
[2017-05-15] MEDS: FLUOXETINE HCL 20 MG CAP PO SCH (09:19)
[2017-05-15] MEDS: METOPROLOL TARTRATE 25 MG TAB PO SCH (09:20)
[2017-05-15 10:15] VITALS: BP 130/78
[2017-05-15 10:29] VITALS: BP 130/78; PULSE 85; TEMP 36.7; O2SAT 95
--- NOTE | 2017-05-15 10:45 | Anesthesiology Progress Note ---
Anesthesia Post Op Note Date & Time May 15, 2017 at 10:45 Vital Signs Pain Intensity: 0.0 Vital Signs Past 12 Hours Date Time Temp Pulse Resp B/P (MAP) Pulse Ox O2 Delivery O2 Flow Rate FiO2 05/15/17 10:29 36.7 85 16 95 Room Air 05/15/17 09:18 85 135/79 (97) 05/15/17 08:00 95 Room Air 05/15/17 06:55 36.7 82 16 144/72 (96) 95 Room Air 05/15/17 03:19 36.8 75 17 101/61 (74) 95 Room Air 05/14/17 23:18 36.8 83 17 101/61 (74) 95 Room Air Notes Mental Status: alert / awake / arousable, participated in evaluation Pt Amnestic to Procedure: Yes Nausea / Vomiting: adequately controlled Pain: adequately controlled Airway Patency, RR, SpO2: stable & adequate BP & HR: stable & adequate Hydration State: stable & adequate Neuraxial Anesthesia: was administered, sensory block resolved Anesthetic Complications: no major complications apparent
[2017-05-15] MEDS ORDERED: WARFARIN SOD 5 MG TAB PO SCH (12:00)
== END 2017-05-15 13:06 | disposition home or self-care (01) | DRG 470 ==
LOC: C.ACU 05:09 → C.3E 06:20 → ENRESERV 09:11
PROVIDERS: ADMIT Physical Medicine & Rehabilitation Sports Medicine; ATTEND Physical Medicine & Rehabilitation Sports Medicine
PROC: 0SR90JA Replacement of Right Hip Joint with Synthetic Substitute, Uncemented, Open Approach (ICD-10-PCS; principal; 2017-05-14 07:00)
DX: M16.11 Unilateral primary osteoarthritis, right hip (principal); M87.351 Other secondary osteonecrosis, right femur; I10 Essential (primary) hypertension; K21.9 Gastro-esophageal reflux disease without esophagitis; G62.9 Polyneuropathy, unspecified; M21.372 Foot drop, left foot; M62.50 Muscle wasting and atrophy, not elsewhere classified, unspecified site; F32.9 Major depressive disorder, single episode, unspecified; F41.9 Anxiety disorder, unspecified; F17.290 Nicotine dependence, other tobacco product, uncomplicated; Z96.642 Presence of left artificial hip joint; Z98.890 Other specified postprocedural states; Z86.73 Personal history of transient ischemic attack (TIA), and cerebral infarction without residual deficits; Z79.82 Long term (current) use of aspirin; Z79.899 Other long term (current) drug therapy

== ENCOUNTER → 2017-12-11 | Outpatient (CLI) | payer OTHER ==
[~2017-12-11] MED LIST changes: -MELO7.5T5 PO; -OXYC-57 PO; +QUIN1TAB49 PO; -QUIN40TA18 PO
[2017-12-11 12:37] LABS: HEMATOCRIT 47.8 % (42-52); HEMOGLOBIN 15.7 g/dL (14.0-18.0); MEAN CORPUSCULAR HEMOGLOBIN 28.9 pg (25-34); MEAN CORPUSCULAR HGB CONC 32.8 g/dl (32-36); MEAN PLATELET VOLUME 11.6 fL (7.4-10.4); PLATELET COUNT 224 K/uL (130-400); RED CELL DISTRIBUTION WIDTH CV 14.9 % (11.5-14.5); RED CELL DISTRIBUTION WIDTH SD 47.9 fL (36.4-46.3); WHITE BLOOD COUNT 7.16 K/uL (4.8-10.8)
[2017-12-11 13:10] LABS: ALBUMIN 3.8 gm/dl (3.4-5.0); ALKALINE PHOSPHATASE 105 U/L (45-117); ALT/SGPT 29 U/L (12-78); AST/SGOT 17 U/L (15-37); BLOOD UREA NITROGEN 24 mg/dl (7-18); CALCIUM 8.8 mg/dl (8.5-10.1); CARBON DIOXIDE 26 mmol/L (21-32); CHOLESTEROL 137 mg/dl (0-200); CREATININE 0.91 mg/dl (0.60-1.40); GLUCOSE 102 mg/dl (70-99); LDL CHOLESTEROL CALCULATED 78 mg/dl; POTASSIUM 4.3 mmol/L (3.5-5.1); SODIUM 140 mmol/L (136-145); TOTAL PROTEIN 7.2 gm/dl (6.4-8.2)
[2017-12-11 13:11] LABS: TRANSFERRIN 285 mg/dl (200-360)
== END | disposition home or self-care (01) ==
LOC: C.LABPVFM 10:25
PROVIDERS: ATTEND Family Medicine
DX: G47.19 Other hypersomnia (principal); R74.0 Nonspecific elevation of levels of transaminase and lactic acid dehydrogenase [LDH]; R53.83 Other fatigue; K50.90 Crohn's disease, unspecified, without complications

== ENCOUNTER 2019-12-27 19:10 | Observation (INO) ==
--- NOTE | 2019-12-27 19:35 | Emergency Department Note ---
Impression & Plan Transient cerebral ischemia, Slurred speech, Foot drop, left ED Provider Note NAME: SIMONE DALTON AGE: 64 SEX: M : 1955 ARRIVES VIA: Walk-In INFORMANT: Patient ED PROVIDER(S): Alexander Nieves DO CHIEF COMPLAINT: Right leg weakness, slurred speech and lightheadedness HPI: Patient is a 64-year-old male who presents the ER for episode of weakness associated with slurred speech this morning. He went to get out of a chair he notes his legs would not work. He had some slurred speech and he was having difficulty moving his right lower extremity. This lasted for an hour. And then resolved. He currently has no headache, change in vision chest pain shortness of breath nausea vomiting or diarrhea. No new weakness now. He always has trouble/numbness in the left lower leg and difficulty with dorsiflexion due to old surgery. He has never had anything like this before in the past. ROS: See above HPI for pertinent positives & negatives. A total of 10 systems reviewed and were otherwise negative. PAST MEDICAL HISTORY:See Below PAST SURGICAL HISTORY:See Below FAMILY HISTORY:See Below SOCIAL HISTORY:See Below HOME MEDICATIONS:See Below ALLERGIES:See Below VITALS:See Below PHYSICAL EXAMINATION: GENERAL: Sitting up in bed, alert, well appearing, well nourished, no distress, non-toxic EYE EXAM: normal conjunctiva. PERRL and EOM's intact. OROPHARYNX: no exudate, no erythema, lips, buccal mucosa, and tongue normal and mucous membranes are moist NECK: supple, no nuchal rigidity, no adenopathy, non-tender LUNGS: Clear to auscultation. Normal chest wall mechanics HEART: no murmurs, S1 normal and S2 normal ABDOMEN: abdomen soft, non-tender, normo-active bowel sounds, no masses, no rebound or guarding. BACK: Back is symmetrical on inspection and there is no deformity, no midline tenderness, no CVA tenderness. SKIN: no rashes and no bruising UPPER EXTREMITIES: upper extremities are grossly normal. LOWER EXTREMITIES: No pitting edema. NEURO EXAM: Normal sensorium, cranial nerves II-XII intact, normal speech, no weakness of arms, function extension at the hips are 3 out of 5, plantarflexion equal bilateral. Unable to dorsiflex on left lower extremity old per patient. No drift. Finger to nose intact. Gross sensation intact. MEDICAL DECISION MAKING: Patient is a 64-year-old male who presents the ER for weakness, lightheadedness slurred speech and right lower extremity weakness. Symptoms started early around 10-11. Lasted for about an hour and completely resolved. IV was established blood was obtained. Labs show no significant leukocytosis or anemia. INR unremarkable. BMP was unremarkable with exception of slightly elevated BUN. LFTs bilirubin magnesium was unremarkable. Troponin was negat maria. CT head as well as CT Angio of the head and neck showed no acute pathology. EKG was nondiagnostic. With his symptoms earlier today did recommend admission for complete stroke work-up and he was agreeable. Discussed with the hospitalist for further evaluation. 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 Triage Nursing notes reviewed. Prior medical records reviewed Vital Signs: reviewed and remarkable for no significant abnormalities Differential diagnosis: Differential Diagnosis includes but is not limited to ischemic Stroke, hemorrhagic stroke, bells palsy, mass, neoplasm, migraine headache, seizure, subarachnoid hemorrhage, TIA, and transient global amnesia. ER treatment provided: See below Diagnostics interpreted by me: ECG: Sinus rhythm rate 66 Normal axis No PVCs Normal QTC Cardiac Monitoring: An order was placed for continuous cardiac monitoring. The monitor shows a rate of 70 with sinus rhythm. Laboratory studies: As stated above and show below. Imaging studies: CT angiogram of the head, neck and cervical spine showed no acute pathology Consultation(s): none ED COURSE: Procedures: none Critical Care: None Past Med/Surg History Medical History (Updated 12/28/19 @ 00:02 by Alexander Nieves DO) Hip replacement planned Hyperlipidemia Surgical History (Updated 12/17/19 @ 15:08 by CELINA Forde) History of carpal tunnel surgery Previous back surgery Family History (Updated 12/17/19 @ 15:08 by CELINA Forde) Father Hypertension Stroke Brother Myocardial infarction Uncle Myocardial infarction Brother Myocardial infarction Denies family history of Ovarian cancer Prostate cancer Diabetes Breast cancer Colorectal cancer Social History (Updated 12/17/19 @ 15:10 by CELINA Forde) Smoking Status: Current every day smoker Tobacco Type: Cigarettes Second Hand Exposure: No; Do You Dip or Chew Tobacco: No; Tobacco Cessation Education Requested by Patient: No Hx Alcohol Use: No Hx Substance Use: No Preferred Language: Serbian Communication Ability: Effective Traffic Division Commanding Officer Required: No Beliefs That Will Affect Care: None marital status: Current Living Situation: Spouse current occupational status: disabled Other Information That Helps Us Care for You: No Feels Safe at Home: Yes Safety Concerns: Feels Safe At This Time Childhood Exposure to Second-Hand Smoke: No caffeine: Yes Dental Care, Regularly: No Physical Activity Frequency: Does not Exercise Physical Activity Frequency Comment: Pt states he is still very active Seatbelt Use: always Sunscreen Use: No Allergies Allergies Allergy/AdvReac Type Severity Reaction Status Date / Time No Known Allergies Allergy Verified 12/27/19 20:46 Home Meds Home Medications Medication Instructions Recorded Confirmed atorvastatin 40 mg PO QPM 12/27/19 12/27/19 calcium-magnesium [Calcium And 1 tab PO DAILY 12/27/19 12/27/19 Magnesium] cholecalciferol (vitamin D3) 1,000 unit PO DAILY 12/27/19 12/27/19 [Vitamin D3] escitalopram oxalate 20 mg PO DAILY 12/27/19 12/27/19 hydrochlorothiazide 12.5 mg PO DAILY 12/27/19 12/27/19 lorazepam 0.5 mg PO DAILY PRN 12/27/19 12/27/19 meclizine 25 mg PO TID PRN 12/27/19 12/27/19 metoprolol tartrate 25 mg PO BID 12/27/19 12/27/19 omeprazole 20 mg PO BID 12/27/19 12/27/19 Previous Rx's Medication Instructions Recorded aspirin 81 mg tablet,delayed 81 mg PO DAILY #30 tab 12/09/18 release meloxicam 7.5 mg tablet 7.5 mg PO BID #180 tab 11/03/19 quinapril 40 mg tablet 40 mg PO DAILY #90 tab 11/03/19 pregabalin 75 mg capsule 75 mg PO BID #60 cap 12/17/19 Results & Data (ED) Vital Signs Vital Signs - 24 hr 12/27/19 19:14 12/27/19 20:10 12/27/19 20:30 Temperature 36.7 C Temperature Source Oral Pulse Rate 74 67 68 Pulse Rate from SpO2 Sensor 67 68 Pulse Rhythm Regular Pulse Strength Normal Respiratory Rate 16 17 16 Respiratory Depth Normal Respiratory Pattern Regular Blood Pressure 178/95 H 156/94 H 125/84 Blood Pressure Mean 122 117 95 Blood Pressure Position Sitting Pulse Oximetry 97 94 94 Oxygen Delivery Method Room Air Sepsis Recent Fever Within 48 Hours No Sepsis New/Unexplained Change in Mental Status N/A Sepsis Action Taken by Nursing No Action Required 12/27/19 21:00 12/27/19 21:30 12/27/19 22:00 Temperature Temperature Source Pulse Rate 64 67 70 Pulse Rate from SpO2 Sensor 65 67 67 Pulse Rhythm Pulse Strength Respiratory Rate 13 10 L 10 L Respiratory Depth Respiratory Pattern Blood Pressure 142/83 H 119/80 124/83 Blood Pressure Mean 107 88 96 Blood Pressure Position Pulse Oximetry 94 93 95 Oxygen Delivery Method Sepsis Recent Fever Within 48 Hours Sepsis New/Unexplained Change in Mental Status Sepsis Action Taken by Nursing 12/27/19 22:30 Temperature Temperature Source Pulse Rate 68 Pulse Rate from SpO2 Sensor 66 Pulse Rhythm Pulse Strength Respiratory Rate 13 Respiratory Depth Respiratory Pattern Blood Pressure 129/88 Blood Pressure Mean 103 Blood Pressure Position Pulse Oximetry 93 Oxygen Delivery Method Sepsis Recent Fever Within 48 Hours Sepsis New/Unexplained Change in Mental Status Sepsis Action Taken by Nursing Laboratory Data Result diagrams: 12/27/19 19:30 12/27/19 19:30 Lab Results 12/27/19 12/27/19 12/27/19 Range/Units 19:29 19:30 19:30 WBC 8.91 (4.8-10.8) K/uL RBC 5.51 (4.7-6.1) M/uL Hgb 17.3 (14.0-18.0) g/dL POC Hgb (14.0-18.0) g/dl Hct 51.2 (42-52) % POC Hct (42-52) % MCV 92.9 (80-100) fL MCH 31.4 (25-34) pg MCHC 33.8 (32-36) g/dL RDW Std Deviation 48.4 H (36.4-46.3) fL RDW Coeff of Pau 14.3 (11.5-14.5) % Plt Count 203 (130-400) K/uL MPV 11.2 H (7.4-10.4) fL Immature Gran % (Auto) 0.2 % Neut % (Auto) 45.0 % Lymph % (Auto) 40.1 % [place] % (Auto) 8.4 % Eos % (Auto) 5.7 % Baso % (Auto) 0.6 % Neut # (Auto) 4.01 (1.4-6.5) K/uL Lymph # (Auto) 3.57 H (1.2-3.4) K/uL [place] # (Auto) 0.75 H (0.11-0.59) K/uL Eos # (Auto) 0.51 H (0-0.5) K/uL Baso # (Auto) 0.05 (0-0.2) K/uL Immature Gran # (Auto) 0.02 (0.00-0.02) K/uL PT 10.4 (9.0-12.0) Seconds INR 1.0 (0.9-1.1) APTT 27.7 (21.0-31.0) Seconds PTT Ratio 1.0 POC Sodium (135-144) mmol/L Sodium (136-145) mmol/L POC Potassium (3.3-5.0) mmol/L Potassium (3.5-5.1) mmol/L POC Chloride (101-112) mmol/L Chloride (98-107) mmol/L Carbon Dioxide (21-32) mmol/L POC Total CO2 (24-31) mmol/L Anion Gap (3-11) POC Anion Gap (16-25) mmol/L POC BUN (7-18) mg/dl BUN (7-18) mg/dl Creatinine (0.6-1.4) mg/dl POC Creatinine (0.6-1.3) mg/dl Est Cr Clr Drug Dosing ml/min Est GFR ( Amer) Est GFR (Non-Af Amer) BUN/Creatinine Ratio (10-20) Glucose (70-99) mg/dl POC Glucose 93 (70-99) mg/dl POC Glucose (other) (70-99) mg/dl Calcium (8.5-10.1) mg/dl POC Ioniz Calcium Smooth (1.12-1.32) mmol/l Magnesium (1.8-2.4) mg/dl Total Bilirubin (0.2-1) mg/dl AST (15-37) U/L ALT (12-78) U/L Alkaline Phosphatase (45-117) U/L Troponin I (0-0.045) ng/ml Total Protein (6.4-8.2) gm/dl Albumin (3.4-5.0) gm/dl Globulin (2.5-4.0) gm/dl Albumin/Globulin Ratio (0.9-2) 12/27/19 12/27/19 Range/Units 19:30 19:41 WBC (4.8-10.8) K/uL RBC (4.7-6.1) M/uL Hgb (14.0-18.0) g/dL POC Hgb 17.7 (14.0-18.0) g/dl Hct (42-52) % POC Hct 52 (42-52) % MCV (80-100) fL MCH (25-34) pg MCHC (32-36) g/dL RDW Std Deviation (36.4-46.3) fL RDW Coeff of Pau (11.5-14.5) % Plt Count (130-400) K/uL MPV (7.4-10.4) fL Immature Gran % (Auto) % Neut % (Auto) % Lymph % (Auto) % [place] % (Auto) % Eos % (Auto) % Baso % (Auto) % Neut # (Auto) (1.4-6.5) K/uL Lymph # (Auto) (1.2-3.4) K/uL [place] # (Auto) (0.11-0.59) K/uL Eos # (Auto) (0-0.5) K/uL Baso # (Auto) (0-0.2) K/uL Immature Gran # (Auto) (0.00-0.02) K/uL PT (9.0-12.0) Seconds INR (0.9-1.1) APTT (21.0-31.0) Seconds PTT Ratio POC Sodium 145 H (135-144) mmol/L Sodium 143 (136-145) mmol/L POC Potassium 4.3 (3.3-5.0) mmol/L Potassium 4.3 (3.5-5.1) mmol/L POC Chloride 103 (101-112) mmol/L Chloride 108 H (98-107) mmol/L Carbon Dioxide 30 (21-32) mmol/L POC Total CO2 32 H (24-31) mmol/L Anion Gap 5.0 (3-11) POC Anion Gap 15.0 L (16-25) mmol/L POC BUN 27 H (7-18) mg/dl BUN 23 H (7-18) mg/dl Creatinine 1.10 (0.6-1.4) mg/dl POC Creatinine 1.1 (0.6-1.3) mg/dl Est Cr Clr Drug Dosing 86.1 ml/min Est GFR ( Amer) 82.9 Est GFR (Non-Af Amer) 71.6 BUN/Creatinine Ratio 21.3 H (10-20) Glucose 93 (70-99) mg/dl POC Glucose (70-99) mg/dl POC Glucose (other) 93 (70-99) mg/dl Calcium 8.8 (8.5-10.1) mg/dl POC Ioniz Calcium Smooth 1.22 (1.12-1.32) mmol/l Magnesium 2.3 (1.8-2.4) mg/dl Total Bilirubin 0.5 (0.2-1) mg/dl AST 25 (15-37) U/L ALT 39 (12-78) U/L Alkaline Phosphatase 80 (45-117) U/L Troponin I < 0.015 (0-0.045) ng/ml Total Protein 7.4 (6.4-8.2) gm/dl Albumin 3.7 (3.4-5.0) gm/dl Globulin 3.7 (2.5-4.0) gm/dl Albumin/Globulin Ratio 1.0 (0.9-2) Discharge Plan Visit Data Chief Complaint: Neuro Symptoms/Deficit Stated Complaint: POSSIBLE STROKE ED Provider: Alexander Nieves Discharge Problem: Transient cerebral ischemia, Slurred speech, Foot drop, left Patient Disposition: Admitted As Inpatient Discharge Instructions Interventions: ED Discharge Assessment Last Done: 12/27/19 23:30 Discharge Problem: Transient cerebral ischemia Qualifiers: Transient cerebral ischemia type: unspecified Qualified Code(s): G45.9 - Transient cerebral ischemic attack, unspecified
[2019-12-27 19:45] LABS: Basophils # (auto) 0.05 K/uL (0-0.2); Basophils % (auto) 0.6 %; Eosinophils # (auto) 0.51 K/uL (0-0.5); Eosinophils % (auto) 5.7 %; Hematocrit (blood only) 51.2 % (42-52); Hemoglobin 17.3 g/dL (14.0-18.0); Immature Granulocytes # (auto) 0.02 K/uL (0.00-0.02); Immature Granulocytes % (auto) 0.2 %; Lymphocytes # (auto) 3.57 K/uL (1.2-3.4); Lymphocytes % (auto) 40.1 %; Mean Corpuscular Hemoglobin 31.4 pg (25-34); Mean Corpuscular Hgb Conc 33.8 g/dL (32-36); Mean Corpuscular Volume 92.9 fL (80-100); Mean Platelet Volume 11.2 fL (7.4-10.4); Monocytes # (auto) 0.75 K/uL (0.11-0.59); Monocytes % (auto) 8.4 %; Neutrophils # (auto) 4.01 K/uL (1.4-6.5); Platelet Count 203 K/uL (130-400); RDW Coefficient of Variation 14.3 % (11.5-14.5); RDW Standard Deviation 48.4 fL (36.4-46.3); Red Blood Count 5.51 M/uL (4.7-6.1); White Blood Count 8.91 K/uL (4.8-10.8)
[2019-12-27 19:53] LABS: iSTAT Creatinine 1.1 mg/dl (0.6-1.3); iSTAT Hemoglobin 17.7 g/dl (14.0-18.0); iSTAT Ionized Calcium 1.22 mmol/l (1.12-1.32); iSTAT Potassium 4.3 mmol/L (3.3-5.0)
[2019-12-27 19:56] LABS: Partial Thromboplastin Time 27.7 Seconds (21.0-31.0); Prothrombin Time 10.4 Seconds (9.0-12.0)
[2019-12-27 20:01] LABS: Alanine Aminotransferase 39 U/L (12-78); Albumin Level 3.7 gm/dl (3.4-5.0); Aspartate Aminotransferase 25 U/L (15-37); BUN Creatinine Ratio 21.3 (10-20); Blood Urea Nitrogen 23 mg/dl (7-18); Calcium 8.8 mg/dl (8.5-10.1); Carbon Dioxide 30 mmol/L (21-32); Chloride 108 mmol/L (98-107); Creatinine Clr Calc Pharmacy 86.1 ml/min; Est GFR (African American) 82.9; Est GFR (Non-African American) 71.6; Glucose 93 mg/dl (70-99); Magnesium 2.3 mg/dl (1.8-2.4); Potassium 4.3 mmol/L (3.5-5.1); Sodium 143 mmol/L (136-145)
[2019-12-27 20:06] LABS: Alkaline Phosphatase 80 U/L (45-117); Bilirubin,Total 0.5 mg/dl (0.2-1); Globulin 3.7 gm/dl (2.5-4.0); Total Protein 7.4 gm/dl (6.4-8.2); Troponin I < 0.015 ng/ml (0-0.045)
--- NOTE | 2019-12-27 20:17 | CT Scan Report ---
CT head/brain wo con CLINICAL HISTORY: 64 years-old Male with Stroke evaluation . Acute strokelike symptoms TECHNIQUE: Multiple axial CT images of the head were obtained without contrast. A dose lowering tech nique was utilized adhering to the principles of ALARA. COMPARISON: CTA head neck of same day FINDINGS: No acute intracranial hemorrhage, midline shift, intracranial mass, hydrocephalus, territorial ischem ia or abnormal extra-axial collection. Cerebral vascular calcifications. The calvarium is intact. The paranasal sinuses, mastoid air cells, and middle ear cavities are clear . IMPRESSION: No acute intracranial abnormality. ACT 112: Negative or not required by law. The above report was generated using voice recognition software. It may contain grammatical, syntax o r spelling errors. Electronically signed by: Estiven Simon M.D. 12/27/2019 8:16 PM
--- NOTE | 2019-12-27 20:25 | CT Scan Report ---
CT angio neck with con, CT angio head w con CLINICAL HISTORY: 64 years-old Male with Stroke evaluation. Acute strokelike symptoms COMPARISON STUDY: Head CT of same day TECHNIQUE: Following the IV administration of 118 mL of Optiray 320, CT angiogram of the head and nec k was performed from the aortic arch to the skull apex. Images are reviewed in the axial, sagittal, a nd coronal planes. 3-D MIPS images are created and assessed. IV contrast was administered without com plication. All measurements were calculated based on NASCET criteria. A dose lowering technique was utilized adhering to the principles of ALARA. CT DOSE: 1135.44 mGy.cm FINDINGS: Aberrant retroesophageal course of the right subclavian artery with moderate mixed plaque. Moderate m ixed plaque is also noted involving the proximal left subclavian artery without high-grade stenosis. There is patency of the bilateral common carotid arteries. There is mixed plaque of the bilateral car otid bulbs and proximal internal carotid arteries without high-grade stenosis. Calcified plaque is al so noted involving the cavernous and supraclinoid segments without high-grade stenosis. The bilateral middle and anterior cerebral arteries are patent. The vertebral arteries are codominant and widely p atent. Mild calcified plaque of the right V4 segment without high-grade stenosis. The basilar and pos terior cerebral arteries are also patent. Cerebral venous sinuses are patent. There is no abnormal in tracranial enhancement. Lung apices are clear without pneumothorax. Unremarkable thyroid. Patent airway. Multilevel degenerat maria changes of the cervical spine. Minimal mucosal thickening of the maxillary sinuses. A small to mo derate sized periapical cyst involves the left mandibular second bicuspid with dental caries. IMPRESSION: 1. No aneurysm, dissection, high-grade stenosis or proximal branch occlusion. 2. Moderate mixed plaque of the carotid bulbs and proximal internal carotid arteries without high-gra de stenosis. 3. Aberrant course of the right subclavian artery. ACT 112: Negative or not required by law. The above report was generated using voice recognition software. It may contain grammatical, syntax o r spelling errors. Electronically signed by: Estiven Simon M.D. 12/27/2019 8:24 PM
--- NOTE | 2019-12-27 23:07 | History & Physical Report ---
Date of Service December 27, 2019 Assessment & Plan (1) Slurred speech: Mr. Bebeto Gatica is a 64 y/o male with past medical hx of current smoker, HTN, HLD, Severe MARCELL, right leg paresthesias, left foot drop, s/p right and left total hip, multiple back surgeries, peripheral neuropathy, OA, TIA, chronic low back pain who presented to [facility] for Slurred Speech. - Now resolved, consider differential of TIA, adverse effect to medication Ativan/Lyrica which are sedating. Also consider severe untreated sleep apnea causing hypoxia. - Will pursue with stroke workup, stroke protocols, and consult neurology - dysphagia screening then if okay, may resume diet. - MRI Brain w/wo - Smoking cessation - Lipid panel and Hgb A1C for risk factor assessment. - Lab work in ED unremarkable - Echo TTE ordered as part of stroke workup with bubble study. - Will hold home Lyrica and Ativan here - C/w home lipitor 40mg PO qPM - c/w home ASA 81mg PO daily - Monitor on Tele, continuous pulse ox - Smoking cessation - PT/OT DVT ppx: SCDs FENGI: NPO until passes screen then heart healthy Dispo: Full admit, med/surg tele Code: full (2) Hyperlipidemia: as above (3) MARCELL (obstructive sleep apnea): suspect will become hypoxic overnight and will respond accordingly Considering starting CPAP in hospital, but since not fitted yet, unsure how he would tolerate. Appears to have long standing. (4) Right leg paresthesias: chronic, hold Lyrica for now (5) Foot drop, left: chronic, c/w LLE PFO brace (6) Tobacco abuse: smoking cessation Nictotine patch if requested (7) Anxiety: c/w home Escitalopram 20mg daily (8) HTN (hypertension): c/w home HCTZ 12.5mg daily c/w home metoprolol tartrate 25mg PO BID Quinapril 40mg PO Non-formulary History of Present Illness Chief Complaint: Slurred Speech Primary Care Provider: Gayatri March MD Mr. Bebeto Gatica is a 64 y/o male with past medical hx of current smoker, HTN, HLD, Severe MARCELL, right leg paresthesias, left foot drop, s/p right and left total hip, multiple back surgeries, peripheral neuropathy, OA, TIA, chronic low back pain who presented to [facility] for Slurred Speech. He notes that he woke up around 7am with blurry vision. He has severe sleep apnea and is currently waiting to be fitted for mask, not treated currently. He notes recently starting Lyrica which he took along with his Ativan around 8:30am. He notes he was sitting in recliner at 10am and he notes he was unable to use legs to get off of recliner. He notes "It felt like I was drunk." He states his daugther told him he had slurred speech. His neighbor is a nurse and instructed him to come to ED. His symptoms completely resolved one hour after onset. He denies headaches, confusion, fever, chest pain, dyspnea. He wonders if this could be medication related. He currently has no new focal weakness. He denies any difficulty with swallowing. Allergies Allergy/AdvReac Type Severity Reaction Status Date / Time No Known Allergies Allergy Verified 12/27/19 20:46 Home Medications Home Medications Medication Instructions Recorded Confirmed Type aspirin 81 mg tablet,delayed 81 mg PO DAILY #30 tab 12/09/18 12/27/19 Rx release quinapril 40 mg tablet 40 mg PO DAILY #90 tab 11/03/19 12/27/19 Rx pregabalin 75 mg capsule 75 mg PO BID #60 cap 12/17/19 12/27/19 Rx calcium-magnesium 1 tab PO DAILY 12/27/19 12/27/19 History cholecalciferol (vitamin D3) 1,000 unit PO DAILY 12/27/19 12/27/19 History [Vitamin D3] escitalopram oxalate 20 mg PO DAILY 12/27/19 12/27/19 History hydrochlorothiazide 12.5 mg PO DAILY 12/27/19 12/27/19 History lorazepam 0.5 mg PO DAILY PRN 12/27/19 12/27/19 History meclizine 25 mg PO TID PRN 12/27/19 12/27/19 History metoprolol tartrate 25 mg PO BID 12/27/19 12/27/19 History omeprazole 20 mg PO BID 12/27/19 12/27/19 History atorvastatin 80 mg PO QPM #60 tab 12/28/19 Rx clopidogrel 75 mg PO DAILY #30 tab 12/28/19 Rx Past Med/Surg History Medical History Hip replacement planned Hyperlipidemia Surgical History History of carpal tunnel surgery Previous back surgery Family History Father Hypertension Stroke Brother Myocardial infarction Uncle Myocardial infarction Brother Myocardial infarction Denies family history of Ovarian cancer Prostate cancer Diabetes Breast cancer Colorectal cancer Social History Smoking Status: Current every day smoker Tobacco Type: Cigarettes Second Hand Exposure: No; Hx Alcohol Use: No Hx Substance Use: No Preferred Language: Wolof Communication Ability: Effective Mangle Catcher Required: No Beliefs That Will Affect Care: None marital status: Current Living Situation: Spouse current occupational status: disabled Feels Safe at Home: Yes Childhood Exposure to Second-Hand Smoke: No caffeine: Yes Dental Care, Regularly: No Physical Activity Frequency: Does not Exercise Physical Activity Frequency Comment: Pt states he is still very active Seatbelt Use: always Sunscreen Use: No Review of Systems Review of Systems: All systems reviewed & are unremarkable except as noted in HPI & below Constitutional: no fever and no chills Eyes: as per Subjective / HPI; no eye pain and no itchy eyes Ear, Nose, Mouth, Throat: no nasal congestion, no nasal obstruction and no epistaxis Respiratory: no cough and no dyspnea Cardiovascular: no chest pain, no palpitations and no syncope Gastrointestinal: no abdominal pain, no nausea, no vomiting, no constipation and no diarrhea/loose stools Genitourinary: no dysuria and no urinary frequency Musculoskeletal: as per Subjective / HPI; no neck pain Integumentary: no rash and no lesions Neurologic: as per Subjective / HPI; no falls and no syncope Physical Exam Constitutional: WD/WN, vitals as above + obese, cooperative and comfortable; no acute distress Eyes: PERRL, conjunctivae normal, anicteric sclerae ENMT: external ear and nose normal, oropharynx normal Neck: normal visual inspection and trachea midline Respiratory: normal respiratory effort; no respiratory distress Auscultation: no crackles, no rales, no rhonchi and no wheezes Cardiovascular: Rate/Rhythm: regular rate and regular rhythm Extremities: no calf tenderness and no pedal edema Gastrointestinal (Abdomen): Percussion/Palpation: abdomen soft; abdomen nontender, no guarding and abdomen not rigid Musculoskeletal: Head/Neck/Chest: normocephalic and head atraumatic AFO brace on LLE with weakness to dorsiflexion and plantarflexion to left foot which is chronic chronic sensory deficits distal to left knee and to right leg, no new/worsening from baseline Skin: no rashes, warm and dry carmona Neurologic: CN's II-XI intact bilaterally, moves all extremities and awake Speech / Cognition: normal speech, no expressive aphasia and no receptive aphasia AFO brace on LLE with weakness to dorsiflexion and plantarflexion to left foot which is chronic chronic sensory deficits distal to left knee and to right leg, no new/worsening from baseline Psychiatric: A+Ox3, euthymic affect Results & Data Results & Data ([facility]) Vital Signs (Past 12 Hours) Vital Signs Temp Pulse Resp BP Pulse Ox 12/27/19 21:00 64 13 142/83 H 94 12/27/19 20:30 68 16 125/84 94 12/27/19 20:10 67 17 156/94 H 94 12/27/19 19:14 36.7 C 74 16 178/95 H 97 Laboratory Results Laboratory Results - last 24 hr 12/27/19 12/27/19 12/27/19 19:29 19:30 19:30 WBC 8.91 RBC 5.51 Hgb 17.3 POC Hgb Hct 51.2 POC Hct MCV 92.9 MCH 31.4 MCHC 33.8 RDW Std Deviation 48.4 H RDW Coeff of Pau 14.3 Plt Count 203 MPV 11.2 H Immature Gran % (Auto) 0.2 Neut % (Auto) 45.0 Lymph % (Auto) 40.1 Kaufman % (Auto) 8.4 Eos % (Auto) 5.7 Baso % (Auto) 0.6 Neut # (Auto) 4.01 Lymph # (Auto) 3.57 H Kaufman # (Auto) 0.75 H Eos # (Auto) 0.51 H Baso # (Auto) 0.05 Immature Gran # (Auto) 0.02 PT 10.4 INR 1.0 APTT 27.7 PTT Ratio 1.0 POC Sodium Sodium POC Potassium Potassium POC Chloride Chloride Carbon Dioxide POC Total CO2 Anion Gap POC Anion Gap POC BUN BUN Creatinine POC Creatinine Est Cr Clr Drug Dosing Est GFR ( Amer) Est GFR (Non-Af Amer) BUN/Creatinine Ratio Glucose POC Glucose 93 POC Glucose (other) Calcium POC Ioniz Calcium Smooth Magnesium Total Bilirubin AST ALT Alkaline Phosphatase Troponin I Total Protein Albumin Globulin Albumin/Globulin Ratio 12/27/19 12/27/19 19:30 19:41 WBC RBC Hgb POC Hgb 17.7 Hct POC Hct 52 MCV MCH MCHC RDW Std Deviation RDW Coeff of Pau Plt Count MPV Immature Gran % (Auto) Neut % (Auto) Lymph % (Auto) Kaufman % (Auto) Eos % (Auto) Baso % (Auto) Neut # (Auto) Lymph # (Auto) Kaufman # (Auto) Eos # (Auto) Baso # (Auto) Immature Gran # (Auto) PT INR APTT PTT Ratio POC Sodium 145 H Sodium 143 POC Potassium 4.3 Potassium 4.3 POC Chloride 103 Chloride 108 H Carbon Dioxide 30 POC Total CO2 32 H Anion Gap 5.0 POC Anion Gap 15.0 L POC BUN 27 H BUN 23 H Creatinine 1.10 POC Creatinine 1.1 Est Cr Clr Drug Dosing 86.1 Est GFR ( Amer) 82.9 Est GFR (Non-Af Amer) 71.6 BUN/Creatinine Ratio 21.3 H Glucose 93 POC Glucose POC Glucose (other) 93 Calcium 8.8 POC Ioniz Calcium Smooth 1.22 Magnesium 2.3 Total Bilirubin 0.5 AST 25 ALT 39 Alkaline Phosphatase 80 Troponin I < 0.015 Total Protein 7.4 Albumin 3.7 Globulin 3.7 Albumin/Globulin Ratio 1.0 Diagnostic Findings CTA Neck/Head IMPRESSION: 1. No aneurysm, dissection, high-grade stenosis or proximal branch occlusion. 2. Moderate mixed plaque of the carotid bulbs and proximal internal carotid arteries without high-grade stenosis. 3. Aberrant course of the right subclavian artery. CT Head No acute intracranial abnormality. Code Status & VTE Plan Code Status Full Code VTE Prophylaxis Plan VTE Prophylaxis will be ordered: Yes Supervising Physician Co-Signing Physician Notes Attending addendum: I have physically seen this patient, have supervised the medical residents activities, and agree with the H&P unless as otherwise noted. Assessment and Plan: TIA/slurred speech/bilateral leg numbness with right worse than left- Duration by 1 hour The patient will be admitted to telemetry for serial cardiac enzymes, serial EKG's, cardiac rhythm monitoring and a 2-D echocardiogram with Dopplers. Ischemic stroke/TIA without TPA order set. CT head negative. CTA head and neck negative. Order MRI of brain Smoking cessation program Consult PT/OT/speech/neurology Remainder of orders and notations as noted Resident Activity Tracking Resident Involvement: Resident Care Provided Care Provided: Adult [facility]
[2019-12-27] MEDS ORDERED: PHARMACIST DISCHARGE MED REC CONSULT PRN (23:49)
[2019-12-27] MEDS ORDERED: ACETAMINOPHEN 325 MG TAB PO PRN (23:49)
[2019-12-27] MEDS ORDERED: ONDANSETRON INJ 2 MG/ML 2 ML VIAL IV PRN (23:49)
[2019-12-28] MEDS ORDERED: GADOBUTROL 65ML VIAL IV ONE (06:34)
[2019-12-28 07:39] LABS: Basophils # (auto) 0.03 K/uL (0-0.2); Basophils % (auto) 0.4 %; Eosinophils # (auto) 0.41 K/uL (0-0.5); Eosinophils % (auto) 5.7 %; Hematocrit (blood only) 50.4 % (42-52); Hemoglobin 16.7 g/dL (14.0-18.0); Immature Granulocytes # (auto) 0.01 K/uL (0.00-0.02); Immature Granulocytes % (auto) 0.1 %; Lymphocytes # (auto) 2.17 K/uL (1.2-3.4); Lymphocytes % (auto) 30.3 %; Mean Corpuscular Hemoglobin 30.5 pg (25-34); Mean Corpuscular Hgb Conc 33.1 g/dL (32-36); Mean Platelet Volume 11.2 fL (7.4-10.4); Monocytes # (auto) 0.82 K/uL (0.11-0.59); Monocytes % (auto) 11.5 %; Neutrophils # (auto) 3.72 K/uL (1.4-6.5); Platelet Count 172 K/uL (130-400); RDW Coefficient of Variation 14.4 % (11.5-14.5); RDW Standard Deviation 48.4 fL (36.4-46.3); Red Blood Count 5.48 M/uL (4.7-6.1); White Blood Count 7.16 K/uL (4.8-10.8)
[2019-12-28 08:05] LABS: Estimated Average Glucose 128 mg/dl; Hemoglobin A1C 6.1 % (4.5-5.6)
[2019-12-28 08:18] LABS: BUN Creatinine Ratio 28.9 (10-20); Calcium 8.8 mg/dl (8.5-10.1); Creatinine Clr Calc Pharmacy 117.2 ml/min; Est GFR (African American) 110.4; Est GFR (Non-African American) 95.3
--- NOTE | 2019-12-28 08:18 | Magnetic Resonance Report ---
MR brain wo/w con HISTORY: 64 years-old Male TIA, slurred speech acute strokelike symptoms COMPARISON: CT head, CTA head neck of same day, brain MRI 12/17/2016 TECHNIQUE: Multiplanar multisequence MRI of the brain was obtained both with and without the use of 1 0.2 mL Gadavist FINDINGS: Management Information Systems Director localizer images demonstrate no gross extracranial abnormality. There is no restricted diffusio n to suggest acute or subacute infarct. Midline structures including the corpus callosum, brainstem, optic chiasm, pituitary and pineal glands appear unremarkable on the sagittal T1 series. No cerebella r tonsillar herniation. No acute intracranial hemorrhage, midline shift, abnormal extra-axial collection, hydrocephalus or in tracranial mass. There are a few scattered T2/FLAIR hyperintensities about the white matter which are likely of no clinical significance, possibly reflective of early chronic microvascular ischemic najera ges. Note is made of slow venous flow within the left transverse and sigmoid sinuses. There is no abn ormal intra-axial or extra-axial enhancement. Major vascular flow voids are patent. Trace left mastoi d effusion. Mild mucosal thickening of the ethmoid air cells and maxillary sinuses. The orbits, skull and soft tissues are unremarkable. IMPRESSION: 1. No acute intracranial abnormality, specifically there is no evidence of acute or subacute infarct. 2. No abnormal enhancement. ACT 112: Negative or not required by law. The above report was generated using voice recognition software. It may contain grammatical, syntax o r spelling errors. Electronically signed by: Estiven Simon M.D. 12/28/2019 8:17 AM
[2019-12-28] MEDS ORDERED: MELOXICAM 7.5 MG TAB PO SCH (09:00)
[2019-12-28] MEDS ORDERED: METOPROLOL TARTRATE 25 MG TAB PO SCH (09:00)
[2019-12-28] MEDS ORDERED: hydroCHLOROthiazide 25 MG TAB PO SCH (09:00)
[2019-12-28] MEDS ORDERED: ASPIRIN 81 MG ECTAB PO SCH (09:00)
[2019-12-28] MEDS ORDERED: ENALAPRIL MALEATE 10 MG TAB PO SCH (09:00)
[2019-12-28] MEDS ORDERED: ESCITALOPRAM OXALATE 20 MG TAB PO SCH (09:00)
--- NOTE | 2019-12-28 10:21 | Neurology Consultation ---
Date of Consultation December 28, 2019 Assessment & Plan (1) TIA (transient ischemic attack): Transient ischemic attack presenting with dysarthria and right lower extremity weakness occurring yesterday morning, lasting for about 1 hour. Symptoms potentially localized to the cecilia or possibly left cerebral hemisphere/left NOE territory. Patient does have several risk factors including cigarette smoking, hypertension, and hyperlipidemia. I would recommend adding clopidogrel 75 mg/day to his medication regimen. Continue with daily low-dose aspirin as well for the next 3 weeks. Would discontinue daily low-dose aspirin afterwards and continue with clopidogrel monotherapy. Consider increasing patient's atorvastatin dosage to 80 mg/day. The importance of tobacco cessation was discussed with patient. He will need additional counseling and management for this issue going forward. Follow-up with results of echocardiogram. Consider obtaining a 30-day cardiac event monitor. Please contact me if I may be of further assistance, thank you for the consult. History of Present Illness Reason for Consultation: TIA, slurred speech Requesting Physician: Dewey Cardenas DO Attending Physician: Peter Burroughs History of Present Illness The patient is a 64-year-old male with a chief complaint of slurred speech and right leg weakness that began acutely yesterday morning at around 10 AM. His symptoms were of moderate severity and resolved in less than 1 hour. He recalls awakening with some mild blurry vision that morning, no overt diplopia, no vertigo. He was able to ambulate during the episode but had considerable difficulty lifting and moving the right leg. History notable for multiple lumbar spinal surgeries and a chronic left foot drop. No known history of stroke or TIA. Past medical history notable for hypertension, obstructive sleep apnea, and tobacco abuse. He takes daily low-dose aspirin, atorvastatin, and several antihypertensives as an outpatient. His blood pressure was modestly elevated at the time of his initial assessment. Neuro imaging has been completed including CT of the head, CT angiography of the head and neck, and brain MRI. Imaging is described in further detail below. No evidence of acute or subacute stroke on MRI. The patient denies experiencing any recurrence of his symptoms overnight or this morning. He feels as if he is back to his usual self with chronic left foot drop related to his lumbar spinal stenosis/multiple lumbar surgeries. Allergies Allergy/AdvReac Type Severity Reaction Status Date / Time No Known Allergies Allergy Verified 12/27/19 20:46 Home Medications Home Medications Medication Instructions Recorded Confirmed Type aspirin 81 mg tablet,delayed 81 mg PO DAILY #30 tab 12/09/18 12/27/19 Rx release meloxicam 7.5 mg tablet 7.5 mg PO BID #180 tab 11/03/19 12/27/19 Rx quinapril 40 mg tablet 40 mg PO DAILY #90 tab 11/03/19 12/27/19 Rx pregabalin 75 mg capsule 75 mg PO BID #60 cap 12/17/19 12/27/19 Rx atorvastatin 40 mg PO QPM 12/27/19 12/27/19 History calcium-magnesium [Calcium And 1 tab PO DAILY 12/27/19 12/27/19 History Magnesium] cholecalciferol (vitamin D3) 1,000 unit PO DAILY 12/27/19 12/27/19 History [Vitamin D3] escitalopram oxalate 20 mg PO DAILY 12/27/19 12/27/19 History hydrochlorothiazide 12.5 mg PO DAILY 12/27/19 12/27/19 History lorazepam 0.5 mg PO DAILY PRN 12/27/19 12/27/19 History meclizine 25 mg PO TID PRN 12/27/19 12/27/19 History metoprolol tartrate 25 mg PO BID 12/27/19 12/27/19 History omeprazole 20 mg PO BID 12/27/19 12/27/19 History Patient History Medical History Hip replacement planned Hyperlipidemia Surgical History History of carpal tunnel surgery Previous back surgery Family History Father Hypertension Stroke Brother Myocardial infarction Uncle Myocardial infarction Brother Myocardial infarction Denies family history of Ovarian cancer Prostate cancer Diabetes Breast cancer Colorectal cancer Social History Smoking Status: Current every day smoker Tobacco Type: Cigarettes Second Hand Exposure: No; Do You Dip or Chew Tobacco: No; Tobacco Cessation Education Requested by Patient: No Hx Alcohol Use: No Hx Substance Use: No Preferred Language: Korean Communication Ability: Effective Construction Site Crossing Guard Required: No Beliefs That Will Affect Care: None marital status: Current Living Situation: Spouse current occupational status: disabled Other Information That Helps Us Care for You: No Feels Safe at Home: Yes Safety Concerns: Feels Safe At This Time Childhood Exposure to Second-Hand Smoke: No caffeine: Yes Dental Care, Regularly: No Physical Activity Frequency: Does not Exercise Physical Activity Frequency Comment: Pt states he is still very active Seatbelt Use: always Sunscreen Use: No Review of Systems Constitutional: no fever and no chills Eyes: as per Subjective / HPI; no blind spots and no diplopia Ear, Nose, Mouth, Throat: no ear pain and no tinnitus Respiratory: no cough and no dyspnea Cardiovascular: no chest pain and no palpitations Gastrointestinal: no nausea and no vomiting Genitourinary: no dysuria Musculoskeletal: + back pain; no neck pain and no myalgia Integumentary: no rash and no lesions Neurologic: as per Subjective / HPI, + localized weakness, + loss of sensation and + abnormal speech; no headache(s), no confusion and no memory loss Psychiatric: no depression and no anxiety Hematologic / Lymphatic: no easy bleeding and no easy bruising Exam (Neuro) Constitutional: well developed and well nourished; no acute distress Eyes: normal visual brandon by confrontation, PERRL, normal accommodation and EOM intact bilaterally; no fundoscopic abnormality, no nystagmus and no papilledema Cardiovascular: Vessels: normal carotid upstroke; no carotid bruit Neurologic: Oriented to:: Person, Place and Time Memory: Short Term Intact and Remote Intact Attention: Span Intact and Concentration Intact Language: Naming Objects and Repeating Phrases Speech Fluency: negative Dysarthria Speech Aphasia: negative Aphasia Fund of Knowledge: Current Events, Past History and Vocabulary Cranial Nerves: Normal II (Visual brandon full to confrontation, visual acuity normal), III, IV, (Pupils equal round reactive to light and accommodation, eye movements normal), V (Facial sensation intact), VII (There is no facial droop or weakness), VIII (Hearing intact), IX, X (Palate elevates to midline), XI (Shoulder shrug intact) and XII (Tongue protrudes to midline) Motor Strength: Normal Upper Extremities; negative Normal Lower Extremities (Left foot drop noted with severe weakness of left foot dorsiflexion, intact plantarflexion as well as eversion/inversion strength.) and Pronator Drift Motor Tone: Normal Lower Extremities and Normal Upper Extremities Muscle Bulk/Involuntary Movements: No Involuntary Movements; negative Muscle Atrophy Sensation: Light Touch Intact, Vibration Intact and Proprioception Intact; negative Pain/Temperature Intact (L5 dermatomal loss on the left noted) Coordination: Normal; negative Limited Balance, Dysdiadochokinesia, Finger-Nose Abnormal and Heel-Lo Abnormal Deep Tendon Reflexes: Rt Triceps: 2+, Lt Triceps: 2+, Rt Biceps: 2+, Lt Biceps: 2+, Rt Brachioradialis: 2+, Lt Brachioradialis: 2+, Rt Patellar: 2+, Lt Patellar: 2+, Rt Ankle: 1+ and Lt Ankle: 1+ Special Tests: negative Babinski Present Details: Gait not tested in the context of patient's current me dical/neurological condition Results & Data ([facility]) Vital Signs (Past 12 Hours) Vital Signs Temp Pulse Pulse Resp BP BP Pulse Ox 12/28/19 07:11 36.5 C 88 16 145/80 H 94 12/28/19 03:15 36.4 C L 58 L 20 145/84 H 96 12/28/19 00:46 68 12/27/19 23:50 36.3 C L 69 20 146/85 H 93 12/27/19 23:30 67 15 124/82 93 12/27/19 23:00 67 13 122/80 94 12/27/19 22:30 68 13 129/88 93 Laboratory Results WBC 7.16, hemoglobin 16.7, hematocrit 50.4, platelet count 172, sodium 143, potassium 4.0, BUN 24, creatinine 0.81, glucose 101, hemoglobin A1c 6.1, triglycerides 149, cholesterol 132, LDL 75, VLDL 30, HDL [address] of the head negative for hemorrhage or acute process. CT angiogram of the head and neck negative for aneurysm, dissection, or high-grade stenosis or proximal branch occlusion. There is mixed plaque within the carotid bulbs and proximal internal carotid arteries without evidence of high-grade stenosis. The right subclavian artery has an aberrant course. Brain MRI negative for acute or subacute stroke. No abnormal postcontrast enhancement. There are changes suggestive of mild chronic cerebrovascular disease. There is no evidence of acute or subacute ischemic change within the cecilia or left NOE territory. I reviewed the images as well as the radiologist's interpretation of these tests. Electrocardiogram reveals a normal sinus rhythm, 66 bpm Coding Level of Care Code 35788 Initial In Care Lvl 3 Diagnoses TIA (transient ischemic attack) G45.9
[2019-12-28 11:16] VITALS: TEMP 97.9
[2019-12-28 14:26] VITALS: PULSE 61
[2019-12-28] MEDS ORDERED: STROKE PATIENT DISCHARGE PRN (14:54)
[2019-12-28] MEDS ORDERED: STROKE PATIENT DISCHARGE STA (14:54)
[2019-12-28] MEDS ORDERED: CLOPIDOGREL BISULFATE 75 MG TAB PO ONE (14:58)
--- NOTE | 2019-12-28 15:14 | Pharmacy Report ---
Pharmacist Stroke Counseling - Date of Service December 28, 2019 - Scope: Pharmacy has been consulted to provide medication discharge counseling for this patient admitted with transient ischemic attack as per the Pharmacist Discharge Counseling for Stroke Patients Protocol. - Medications on Discharge: Home Medications Medication Instructions Recorded Confirmed calcium-magnesium [Calcium And 1 tab PO DAILY 12/27/19 12/27/19 Magnesium] cholecalciferol (vitamin D3) 1,000 unit PO DAILY 12/27/19 12/27/19 [Vitamin D3] escitalopram oxalate 20 mg PO DAILY 12/27/19 12/27/19 hydrochlorothiazide 12.5 mg PO DAILY 12/27/19 12/27/19 lorazepam 0.5 mg PO DAILY PRN 12/27/19 12/27/19 meclizine 25 mg PO TID PRN 12/27/19 12/27/19 metoprolol tartrate 25 mg PO BID 12/27/19 12/27/19 omeprazole 20 mg PO BID 12/27/19 12/27/19 New Rx's Medication Instructions Recorded aspirin 81 mg tablet,delayed 81 mg PO DAILY #30 tab 12/09/18 release meloxicam 7.5 mg tablet 7.5 mg PO BID #180 tab 11/03/19 quinapril 40 mg tablet 40 mg PO DAILY #90 tab 11/03/19 pregabalin 75 mg capsule 75 mg PO BID #60 cap 12/17/19 atorvastatin 80 mg PO QPM #60 tab 12/28/19 clopidogrel 75 mg PO DAILY #30 tab 12/28/19 - Action: The above medications, specifically ones for stroke treatment/prophylaxis, have been reviewed in detail with the patient and/or patient underwriting sales representative(s) prior to discharge. This includes indication, common adverse reactions, drug interactions, and medication administration. Medication counseling has been employed using the teach-back method to ensure understanding. - Outcome: The patient and/or patient underwriting sales representative(s) have demonstrated understanding of the medications. Additional comments: * Patient has omeprazole listed on his home med list. He reports rarely using this medication. I cautioned him that this medication should not be taken with plavix and that he should discuss alternatives with his PCP. I suggested Pepcid in the meantime. * I stressed to the patient that he will take both ASA + Plavx for 3 weeks, then stop ASA and continue Plavix alone. * He asked if he should continue Lyrica. He reports that Lyrica is a new medication for him and he started taking it around the same time that his symptoms presented. I instructed him to confirm whether or not to continue this medication with Hospitalist prior to leaving. Thank you for allowing pharmacy to be involved in the care of this patient. Please call [phone] with any additional questions
[2019-12-28 15:45] VITALS: O2SAT 92
[2019-12-28 16:09] VITALS: BP 138/84
[2019-12-28] MEDS ORDERED: ATORVASTATIN 40 MG TAB PO SCH (21:00)
--- NOTE | 2019-12-28 22:20 | Electrocardiogram Report ---
Test Reason : Blood Pressure : / mmHG Vent. Rate : 066 BPM Atrial Rate : 066 BPM P-R Int : 182 ms QRS Dur : 098 ms QT Int : 394 ms P-R-T Axes : 058 004 051 degrees QTc Int : 413 ms Normal sinus rhythm Possible Left atrial enlargement Incomplete right bundle branch block Septal infarct , age undetermined Abnormal ECG When compared with ECG of 13-JUL-2012 14:39, Questionable change in QRS axis Confirmed by Ez Pisano ([id number]) on 12/28/2019 10:20:29 PM Referred By: REFERRED SELF Confirmed By:Ez Pisano
--- NOTE | 2019-12-29 04:36 | Billing Data ---
Date of Service December 29, 2019 Coding Level of Care Code 43618 OBS Care - Level 3
--- NOTE | 2020-01-03 23:37 | Discharge Summary ---
Date of Service December 28, 2019 Admission HPI Per Admitting Provider Mr. Bebeto Gatica is a 64 y/o male with past medical hx of current smoker, HTN, HLD, Severe MARCELL, right leg paresthesias, left foot drop, s/p right and left total hip, multiple back surgeries, peripheral neuropathy, OA, TIA, chronic low back pain who presented to [facility] for Slurred Speech. He notes that he woke up around 7am with blurry vision. He has severe sleep apnea and is currently waiting to be fitted for mask, not treated currently. He notes recently starting Lyrica which he took along with his Ativan around 8:30am. He notes he was sitting in recliner at 10am and he notes he was unable to use legs to get off of recliner. He notes "It felt like I was drunk." He states his daugther told him he had slurred speech. His neighbor is a nurse and instructed him to come to ED. His symptoms completely resolved one hour after onset. He denies headaches, confusion, fever, chest pain, dyspnea. He wonders if this could be medication related. He currently has no new focal weakness. He denies any diff iculty with swallowing. Principal Diagnosis TIA Discharge Exam Constitutional: WD/WN, vitals as above + obese, cooperative and comfortable; no acute distress Eyes: PERRL, conjunctivae normal, anicteric sclerae ENMT: external ear and nose normal, oropharynx normal Neck: normal visual inspection and trachea midline Respiratory: normal respiratory effort; no respiratory distress Auscultation: no crackles, no rales, no rhonchi and no wheezes Cardiovascular: Rate/Rhythm: regular rate and regular rhythm Extremities: no calf tenderness and no pedal edema Gastrointestinal (Abdomen): Percussion/Palpation: abdomen soft; abdomen nontender, no guarding and abdomen not rigid Musculoskeletal: head/Neck/Chest: normocephalic and head atraumatic Skin: no rashes, warm and dry carmona Neurologic: CN's II-XI intact bilaterally, moves all extremities and awake Speech / Cognition: normal speech, no expressive aphasia and no receptive aphasia Psychiatric: A+Ox3, euthymic affect Discharge Data Allergies Allergy/AdvReac Type Severity Reaction Status Date / Time No Known Allergies Allergy Verified 12/27/19 20:46 Consultations 12/27/19 21:28 ED Decision to Admit Stat 12/27/19 23:49 Consult Case Management - Discharge Planning Routine Consult Neurology Routine Ordered Studies 12/27/19 19:29 CT angio head w con Stat CT angio neck with con Stat CT head/brain wo con Stat 12/28/19 00:05 MR brain wo/w con Routine Hospital Course (1) Slurred speech: Appreciate input from Neuro: Transient ischemic attack presenting with dysarthria and right lower extremity weakness occurring yesterday morning, lasting for about 1 hour. Symptoms potentially localized to the cecilia or possibly left cerebral hemisphere/left NOE territory. Patient does have several risk factors including cigarette smoking, hypertension, and hyperlipidemia. I would recommend adding clopidogrel 75 mg/day to his medication regimen. Continue with daily low-dose aspirin as well for the next 3 weeks. Would discontinue daily low-dose aspirin afterwards and continue with clopidogrel monotherapy. Consider increasing patient's atorvastatin dosage to 80 mg/day. The importance of tobacco cessation was discussed with patient. He will need additional counseling and management for this issue going forward. Follow-up with results of echocardiogram. Consider obtaining a 30-day cardiac event monitor. (2) Hyperlipidemia: as above (3) MARCELL (obstructive sleep apnea): suspect will become hypoxic overnight and will respond accordingly Considering starting CPAP in hospital, but since not fitted yet, unsure how he would tolerate. Appears to have long standing. (4) Right leg paresthesias: chronic, hold Lyrica for now (5) Foot drop, left: chronic, c/w LLE PFO brace (6) Tobacco abuse: smoking cessation Nictotine patch if requested (7) Anxiety: c/w home Escitalopram 20mg daily (8) HTN (hypertension): c/w home HCTZ 12.5mg daily c/w home metoprolol tartrate 25mg PO BID Quinapril 40mg PO Non-formulary (3) MARCELL (obstructive sleep apnea): (4) Right leg paresthesias: (5) Foot drop, left: (6) Tobacco abuse: (7) Anxiety: (8) HTN (hypertension): Total Time Total Time Spent Total Time Spent (In Minutes): 32 Discharge Plan Discharge Items Patient Disposition: Home - Self-Care Reason For Visit: SLURRED SPEECH/TIA Discharge Diagnosis: TIA Activity: Resume your previous activity Non-emergency contact: Primary Care Provider Call non-emergency contact if: you have any medication questions Follow-up/Referrals: Gayatri March MD [Primary Care Provider] - 12/30/19 11:30 am (If you need to change this appointment, please call [phone].) Diet: Regular Addtl Attending Provider Instructions: adding clopidogrel 75 mg/day to his medication regimen. Continue with daily low-dose aspirin as well for the next 3 weeks. Would discontinue daily low-dose aspirin afterwards and continue with clopidogrel monotherapy. Increase patient's atorvastatin dosage to 80 mg/day. The importance of tobacco cessation was discussed with patient. Will obtain a 30-day cardiac event monitor. Pending Studies at Discharge: No Stand-Alone Forms: Medications to Prevent Stroke, [facility], Smoking Cessation Medications and DC Order Prescriptions: New clopidogrel 75 mg tablet 75 mg PO DAILY Qty: 30 RF: 0 Continued quinapril 40 mg tablet 40 mg PO DAILY Qty: 90 RF: 0 aspirin [Adult Low Dose Aspirin] 81 mg tablet,delayed release (DR/EC) 81 mg PO DAILY Qty: 30 RF: 2 pregabalin [Lyrica] 75 mg capsule 75 mg PO BID Qty: 60 RF: 0 cholecalciferol (vitamin D3) [Vitamin D3] 25 mcg (1,000 unit) Capsule 1,000 unit PO DAILY RF: 0 escitalopram oxalate 20 mg tablet 20 mg PO DAILY RF: 0 meclizine 12.5 mg tablet 25 mg PO TID PRN (Reason: Dizziness) RF: 0 metoprolol tartrate 50 mg tablet 25 mg PO BID RF: 0 omeprazole 20 mg capsule,delayed release(DR/EC) 20 mg PO BID RF: 0 hydrochlorothiazide 25 mg tablet 12.5 mg PO DAILY RF: 0 calcium-magnesium 750-465 mg Tablet 1 tab PO DAILY RF: 0 lorazepam 0.5 mg tablet 0.5 mg PO DAILY PRN (Reason: Anxiety) RF: 0 Discontinued meloxicam 7.5 mg tablet 7.5 mg PO BID Qty: 180 RF: 1 atorvastatin 40 mg tablet 40 mg PO QPM RF: 0 No Action rosuvastatin [Crestor] 40 mg tablet 40 mg PO DAILY Qty: 90 RF: 3 aspirin 325 mg tablet 325 mg PO .COMPLEX RF: 0 Discharge Orders: Discharge Order (Routine); Ordered 12/28/19 Ordered By: Peter Hernandez/Other Patient Handouts: Prediabetes, Diabetes: Meal Planning, A1C Admission Data Admit Date/Time: 12/27/19 22:36 Attending Provider: Peter Burroughs Admit Provider: Dewey Cardenas Primary Care Provider: Gayatri March Other Providers: Orlando Garcia ; Jermaine Bolanos ; Giancarlo Oliveira Other Interventions: Discharge Summary Assessment (RN) Last Done: 12/28/19 16:07 Coding Level of Care Code 51973 OBS Care - Discharge Diagnoses Slurred speech R47.81 Hyperlipidemia E78.5 MARCELL (obstructive sleep apnea) G47.33 Right leg paresthesias R20.2 Foot drop, left M21.372 Tobacco abuse Z72.0 Anxiety F41.9 HTN (hypertension) I10
== END 2019-12-28 16:23 | disposition home or self-care (01) ==
LOC: 2W 19:10 → ED 19:10 → SUATTDRO 22:36 → 2W 23:30
DX: F17.210 Nicotine dependence, cigarettes, uncomplicated; E78.5 Hyperlipidemia, unspecified; I10 Essential (primary) hypertension; Z79.899 Other long term (current) drug therapy; M21.372 Foot drop, left foot; G45.9 Transient cerebral ischemic attack, unspecified; Z79.82 Long term (current) use of aspirin; G47.33 Obstructive sleep apnea (adult) (pediatric)